=== PATIENT | female | born 1930 | race Caucasian/White ===

== ENCOUNTER 2016-07-15 15:18 | Observation (INO) | payer OTHER ==
[2016-07-15] VITALS (9 sets, daily range): BP systolic 109–148; BP diastolic 61–80; PULSE 53–61; RESP 18–19; TEMP 98–98.6; O2SAT 94–99
[~2016-07-15 15:18] MED LIST: AMLO10 PO; ATOR20TA42 PO; EYECAP PO; FLON0.053; FURO20 PO; MECL25; METO25 PO; NITR.4 SL; SOTA80TA PO; SPIR25TA PO
[2016-07-15] MEDS ORDERED: SODIUM CHLORIDE 0.9% FLUSH 10 ML FLUSH IV FLUSH PRN ×2 (17:15→20:00)
--- NOTE | 2016-07-15 17:19 | PD ---
HPI Chief Complaint: General Weakness Time Seen by Provider: 17:05 Travel History International Travel<30 days: No Contact w/Intl Traveler<30days: No Traveled to known affect area: No History of Present Illness HPI 86-year-old female with history of type B aortic dissection being treated medically, A. fib, hypertension, CAD, recently diagnosed with sinusitis and started on cefuroxime by her primary care physician, here for evaluation of generalized weakness, feeling as though she is going to faint, unable to ambulate more than 6 steps with her walker without becoming shortness of breath and feeling as if she may pass out. The patient also states that she feels dizzy/lightheaded when she ambulates. The symptoms have been going on for last several days. The patient has had a nonproductive cough. She denies chest pain. She has dyspnea on exertion, not at rest. No abdominal pain. No fevers. PFSH Past Medical History Arthritis: Yes Asthma: Yes (HX) Anxiety: Yes Depression: Yes Cancer: Yes (VULVA) Cardiomyopathy: Yes Cardiovascular Problems: Yes (CARDIOMYOPATHY/CHF) High Cholesterol: Yes Congestive Heart Failure: Yes (2013) Cerebrovascular Accident: Yes (MULTIPLE TIA) Coronary Artery Disease: Yes Diminished Hearing: No Diverticulitis: Yes Endocrine: No Gastrointestinal Disorders: Yes GERD: Yes Genitourinary: Yes Hiatal Hernia: Yes Hypertension: Yes Immune Disorder: No Implanted Vascular Access Dvce: Yes Musculoskeletal: Yes (LEFT ARM PAIN) Neurologic: Yes Psychiatric: Yes Reproductive: Yes (HX CANCER VULVA) Respiratory: Yes (O2 @HOME) Immunizations Current: Yes Radiation Therapy: No Renal Failure: Yes (PT STATES DX LAST WEEK) Sleep Apnea: Yes (POSSIBLE) Ulcer: Yes Menopausal: Yes Ovarian Cysts: Yes Past Surgical History Abdominal Surgery: Yes (APPENDECTOMY, HERNIAS X 2) AICD: Yes (PACEMAKER DEFIB) Appendectomy: Yes Body Medical Devices: GAVIN EYE LENS Cardiac Surgery: Yes (AICD) Eye Surgery: Yes (GAVIN CATARACT SX) Gynecologic Surgery: Yes (VULVA CANCER SX X 3) Joint Replacement: Yes (gavin hips) Oral Surgery: Yes (T&A HAS TMJ) Pacemaker: Yes Tonsillectomy: Yes Other Surgery: Yes Family History Family Hypercholesterolemia: Yes Social History Alcohol Use: No Tobacco Use: No Substance Use: No Allergies-Medications (Allergen,Severity, Reaction): Coded Allergies: Erythromycins (Verified Allergy, Severe, GASTRIC, 07/15/16) Felodipine (Verified Allergy, Severe, 07/15/16) Niacin (Verified Allergy, Severe, GASTRIC, 07/15/16) Penicillin (Verified Allergy, Severe, HIVES, 07/15/16) Dilaudid (Verified Allergy, Intermediate, Dizziness, 07/15/16) Doxycycline (Verified Allergy, Unknown, 07/15/16) Indocin (Verified Allergy, Unknown, PT DOES NOT KNOW, 07/15/16) Levaquin (Verified Allergy, Unknown, PT DOES NOT KNOW, 07/15/16) Naprosyn (Verified Allergy, Unknown, DOES NOT KNOW, 07/15/16) Sulfa (Verified Allergy, Unknown, DOES NOT KNOW , 07/15/16) Zestril (Verified Allergy, Unknown, DOES NOT KNOW, 07/15/16) Bactrim (Verified Adverse Reaction, Severe, 07/15/16) Uncoded Allergies: PLENDIL (Allergy, Unknown, 08/02/14) Reported Meds & Prescriptions Reported Meds & Active Scripts Active Reported Cefuroxime (Cefuroxime Axetil) 250 Mg Tab 250 Mg PO BID Meclizine (Meclizine HCl) 25 Mg Tab 25 Mg PO DIRECTED PRN Ipratropium Neb (Ipratropium Sublimity) 0.5 Mg/2.5 Ml Amp 0.5 Mg NEB Q6HR NEB PRN Furosemide 20 Mg Tab 20 Mg PO DAILY Fluticasone Nasal [place] 50 Mcg/Act Naspr 50 Mcg EACH NARE DAILY 50 mcg/spray Eye Vitamins (Multiple Vitamins W/ Minerals) 1 Cap 1 Cap PO DAILY Atorvastatin (Atorvastatin Calcium) 20 Mg Tab 20 Mg PO HS Aspirin 325 Mg Tab 325 Mg PO DAILY Amlodipine (Amlodipine Besylate) 2.5 Mg Tab 2.5 Mg PO DAILY Alprazolam 0.25 Mg Tab 0.25 Mg PO Q6H PRN Sotalol (Sotalol HCl) 80 Mg Tab 40 Mg PO BID Spironolactone 25 Mg Tab 25 Mg PO DAILY Nitrostat SL (Nitroglycerin) 0.4 Mg Subl 0.4 Mg SL DIRECTED PRN 1 tablet under the tongue as needed for chest pain. Repeat every 5 minutes for a total of 3 DOSES or call 911 if NO relief. Metoprolol Tartrate 25 Mg Tab 25 Mg PO BID Review of Systems Except as stated in HPI: all other systems reviewed are Neg Physical Exam Narrative GENERAL: Well-developed, well-nourished, no acute distress SKIN: Warm and dry. No rash. No pallor. HEAD: Atraumatic. Normocephalic. EYES: Pupils equal and round. No scleral icterus. No injection or drainage. ENT: Mucous membranes pink and moist. NECK: Trachea midline. No JVD. No nuchal rigidity. CARDIOVASCULAR: Regular rate and rhythm. RESPIRATORY: No accessory muscle use. Clear to auscultation. Breath sounds equal bilaterally. GASTROINTESTINAL: Abdomen soft, non-tender, nondistended. Hepatic and splenic margins not palpable. MUSCULOSKELETAL: No obvious deformities. No clubbing. No cyanosis. No edema. NEUROLOGICAL: Awake and alert. No obvious cranial nerve deficits. Motor grossly within normal limits. Normal speech. No focal deficit. PSYCHIATRIC: Appropriate mood and affect; insight and judgment normal. Data Data Last Documented VS Vital Signs Date Time Temp Pulse Resp B/P Pulse Ox O2 Delivery O2 Flow Rate FiO2 07/15/16 18:30 61 18 134/71 99 Room Air 07/15/16 15:20 98.2 Orders Complete Blood Count With Diff (07/15/16 17:11) Comprehensive Metabolic Panel (07/15/16 17:11) Prothrombin Time / Inr (Pt) (07/15/16 17:11) Act Partial Throm Time (Ptt) (07/15/16 17:11) Urinalysis - C+S If Indicated (07/15/16 17:11) Iv Access Insert/Monitor (07/15/16 17:11) Ecg Monitoring (07/15/16 17:11) Oximetry (07/15/16 17:11) Sodium Chloride 0.9% Flush (Ns Flush) (07/15/16 17:15) Electrocardiogram (07/15/16 17:11) Chest, Single Ap (07/15/16 ) Ct Brain W/O Iv Contrast(Rout) (07/15/16 ) Influenzae A/B Antigen (07/15/16 17:11) Cath For Specimen (07/15/16 17:14) Admit Order (Ed Use Only) (07/15/16 19:32) Labs Laboratory Tests Test 07/15/16 07/15/16 17:26 18:10 White Blood Count 3.2 TH/MM3 Red Blood Count 4.32 MIL/MM3 Hemoglobin 13.5 GM/DL Hematocrit 41.1 % Mean Corpuscular Volume 94.9 FL Mean Corpuscular Hemoglobin 31.1 PG Mean Corpuscular Hemoglobin 32.8 % Concent Red Cell Distribution Width 12.7 % Platelet Count 114 TH/MM3 Mean Platelet Volume 9.5 FL Neutrophils (%) (Auto) 42.7 % Lymphocytes (%) (Auto) 44.8 % Monocytes (%) (Auto) 10.9 % Eosinophils (%) (Auto) 0.9 % Basophils (%) (Auto) 0.7 % Neutrophils # (Auto) 1.4 TH/MM3 Lymphocytes # (Auto) 1.4 TH/MM3 Monocytes # (Auto) 0.3 TH/MM3 Eosinophils # (Auto) 0.0 TH/MM3 Basophils # (Auto) 0.0 TH/MM3 CBC Comment DIFF FINAL Differential Comment Prothrombin Time 11.0 SEC Prothromb Time International 1.0 RATIO Ratio Activated Partial 28.7 SEC Thromboplast Time Sodium Level 136 MEQ/L Potassium Level 3.8 MEQ/L Chloride Level 100 MEQ/L Carbon Dioxide Level 27.9 MEQ/L Anion Gap 8 MEQ/L Blood Urea Nitrogen 15 MG/DL Creatinine 0.94 MG/DL Estimat Glomerular Filtration 56 ML/MIN Rate Random Glucose 109 MG/DL Calcium Level 8.7 MG/DL Total Bilirubin 0.8 MG/DL Aspartate Amino Transf 21 U/L (AST/SGOT) Alanine Aminotransferase 14 U/L (ALT/SGPT) Alkaline Phosphatase 72 U/L Total Protein 6.5 GM/DL Albumin 3.4 GM/DL Urine Color LIGHT-YELLOW Urine Turbidity CLEAR Urine pH 5.0 Urine Specific [place] 1.006 Urine Protein NEG mg/dL Urine Glucose (UA) NEG mg/dL Urine Ketones NEG mg/dL Urine Occult Blood NEG Urine Nitrite NEG Urine Bilirubin NEG Urine Urobilinogen LESS THAN 2.0 MG/DL Urine Leukocyte Esterase SMALL Urine RBC LESS THAN 1 /hpf Urine WBC 2 /hpf Urine Bacteria RARE /hpf Urine Hyaline Casts 7 /lpf Urine Mucus FEW /lpf Microscopic Urinalysis Comment CULT NOT INDICATED MDM Medical Decision Making Medical Screen Exam Complete: Yes Emergency Medical Condition: Yes Medical Record Reviewed: Yes Differential Diagnosis Viral illness, URI, metabolic abnormality, intracranial abnormality, UTI Narrative Course Initial vital signs show heart rate 75, blood pressure 112/80, pulse ox 97% on room air, oral temp of 98.2F. CBC shows WBC 3.2, hemoglobin 13.5, hematocrit 41.1, platelets 114. CMP is unremarkable. UA shows small leukocyte esterase, rare bacteria, not suggestive of UTI. CT head: Age-appropriate atrophy, no acute findings. Chest x-ray: There is a small nonconsolidated infiltrate in the lower lateral left lung. The patient was made aware of all findings. She is resting comfortably. She still tells me that if she walks several steps she feels like she is going to pass out. She was started on Rocephin and azithromycin for her pneumonia. She will be admitted for further treatment and evaluation of pneumonia, near syncope. Case discussed with hospitalist Dr. Gutiérrez who will admit the patient to her service and will write for antibiotics to cover for CAP. Diagnosis Primary Impression: Pneumonia Qualified Code: J18.1 - Pneumonia of left lower lobe due to infectious organism Additional Impression: Near syncope Admitting Information Admitting Physician Requests: Observation Ozzie Hudson MD Jul 15, 2016 17:19 Ozzie Hudson MD Jul 15, 2016 17:19
[2016-07-15 17:39] LABS: AUTOMATED NEUTROPHIL # 1.4 TH/MM3 (1.8-7.7); BASOPHIL % 0.7 % (0.0-2.0); EOSINOPHIL % 0.9 % (0.0-4.0); HEMATOCRIT 41.1 % (35.0-46.0); HEMO FLAGS DIFF FINAL; LYMPH % 44.8 % (9.0-44.0); LYMPHOCYTE # 1.4 TH/MM3 (1.0-4.8); MEAN CELL VOLUME 94.9 FL (80.0-100.0); MEAN CORPUSCULAR HEMOGLOBIN 31.1 PG (27.0-34.0); MEAN CORPUSCULAR HGB CONC 32.8 % (32.0-36.0); MONO % 10.9 % (0.0-8.0); NEUT % 42.7 % (16.0-70.0); PLATELET COUNT 114 TH/MM3 (150-450); RED BLOOD COUNT 4.32 MIL/MM3 (4.00-5.30); RED CELL DISTRIBUTION WIDTH 12.7 % (11.6-17.2); WHITE BLOOD COUNT 3.2 TH/MM3 (4.0-11.0)
[2016-07-15 17:52] LABS: APTT (PATIENT) 28.7 SEC (24.3-30.1)
[2016-07-15 18:09] LABS: ALKALINE PHOSPHATASE 72 U/L (45-117); TOTAL BILIRUBIN ADULT 0.8 MG/DL (0.2-1.0)
[2016-07-15 18:14] LABS: ALT (GPT) 14 U/L (10-53); ANION GAP 8 MEQ/L (5-15); AST (GOT) 21 U/L (15-37); BICARBONATE 27.9 MEQ/L (21.0-32.0); BLOOD UREA NITROGEN 15 MG/DL (7-18); CHLORIDE 100 MEQ/L (98-107); GLOMERULAR FILTRATION RATE 56 ML/MIN (>89); POTASSIUM 3.8 MEQ/L (3.5-5.1); SODIUM (NA) 136 MEQ/L (136-145)
[2016-07-15 18:30] LABS: BACTERIA, URINE RARE /hpf; BLOOD, URINE NEG (NEG); GLUCOSE,URINE NEG (NEG); HYALINE CAST, URINE 7 /lpf (RARE); KETONE, URINE NEG (NEG); MUCUS URINE FEW /lpf (OCC); NITRITE,URINE NEG (NEG); URINE COLOR LIGHT-YELLOW (YELLW/STRAW)
[2016-07-15 18:31] LABS: COMMENT (UR) CULT NOT INDICATED; CULTURE IF INDICATED CULT NOT INDICATED
[2016-07-15] MEDS ORDERED: SOTA80TA PO (18:39)
[2016-07-15] MEDS ORDERED: FLUT50SP EACH NARE (18:39)
[2016-07-15] MEDS ORDERED: ALPR0.25 PO (18:39)
[2016-07-15] MEDS ORDERED: EYECAP PO (18:39)
[2016-07-15] MEDS ORDERED: MECL-62 PO (18:39)
[2016-07-15] MEDS ORDERED: AMLO2.5T PO (18:39)
[2016-07-15] MEDS ORDERED: FURO20TA PO (18:39)
[2016-07-15] MEDS ORDERED: SPIR25TA PO (18:39)
[2016-07-15] MEDS ORDERED: ATOR20TA15 PO (18:39)
[2016-07-15] MEDS ORDERED: IPRA0.02 NEB (18:39)
[2016-07-15] MEDS ORDERED: NITR0.4S SL (18:39)
[2016-07-15] MEDS ORDERED: METO25TA3 PO (18:39)
[2016-07-15] MEDS ORDERED: CEFU250T PO (18:39)
[2016-07-15] MEDS ORDERED: ASPI325T PO (18:39)
--- NOTE | 2016-07-15 18:39 | RADRPT ---
EXAM DATE/TIME: 07/15/2016 17:25 [facility] COMPARISON: CHEST SINGLE AP, March 09, 2015, 20:13. INDICATIONS : Syncope. MEDICAL HISTORY : Chronic obstructive pulmonary disease. Hypertension SURGICAL HISTORY : Pacemaker. ENCOUNTER: Initial ACUITY: 2 days PAIN SCORE: 0/10 LOCATION: chest FINDINGS: Cardiac pacer device obscures a portion of the lower lateral left lung. There is a focal opacity see n in the left lower lung which is partially obscured by a medical billing coordinator. The right lung is clear. No evidence of pneumothorax. Amorphous calcific densities in the right axilla and adjacent to the pr oximal left humerus similar to prior. The heart is normal size. CONCLUSION: There is a small non-consolidative infiltrate in the lower lateral left lung. Lencho Veliz MD on July 15, 2016 at 18:36 Board Certified Radiologist. This report was verified electronically.
--- NOTE | 2016-07-15 19:01 | RADRPT ---
EXAM DATE/TIME: 07/15/2016 17:41 [facility] COMPARISON: CT BRAIN W/O CONTRAST, August 02, 2014, 12:26. INDICATIONS : Generalized weakness. RADIATION DOSE: 35.54 CTDIvol (mGy) MEDICAL HISTORY : Stroke. Renal failure, chronic. Carcinoma, vulva. SURGICAL HISTORY : Pacemaker. ENCOUNTER: Initial ACUITY: 1 day PAIN SCALE: 0/10 LOCATION: cranial TECHNIQUE: Multiple contiguous axial images were obtained of the head. Using automated exposure control and adj ustment of the mA and/or kV according to patient size, radiation dose was kept as low as reasonably a chievable to obtain optimal diagnostic quality images. FINDINGS: CEREBRUM: The ventricles are normal for age. No evidence of midline shift, mass lesion, hemorrhage or acute in farction. No extra-axial fluid collections are seen. POSTERIOR FOSSA: The cerebellum and brainstem are intact. The 4th ventricle is midline. The cerebellopontine angle i s unremarkable. EXTRACRANIAL: The visualized portion of the orbits is intact. SKULL: The calvaria is intact. No evidence of skull fracture. CONCLUSION: Age-appropriate atrophy. No acute findings. Lencho Veliz MD on July 15, 2016 at 18:58 Board Certified Radiologist. This report was verified electronically.
--- NOTE | 2016-07-15 19:58 | HHI.HP ---
[facility] Service [facility] Primary Care Physician Clint Calles MD Admission Diagnosis pneumonia, near syncope Diagnoses: (1) Near syncope Diagnosis: Principal (2) Generalized weakness Diagnosis: Principal (3) PNA (pneumonia) Diagnosis: Principal (4) UTI (urinary tract infection) Diagnosis: Principal (5) Dehydration Diagnosis: Principal (6) Leukopenia Diagnosis: Principal (7) Thrombocytopenia Diagnosis: Principal Travel History International Travel<30 Days: No Contact w/Intl Traveler <30 Da: No Traveled to Known Affected Are: No History of Present Illness This is an 86-year-old female with a PMH of Anxiety, Depression, CHF (Echo w/ EF 40-45%), h/o CVA, A-fib, CAD and HTN who presented to the ER secondary to generalized weakness and near syncope in addition to SOB. Recently started on Cefuroxime 250mg BID by PCP for Sinusitis, reports compliance w/ medications. Today, pt reports increased dizziness and weakness, unable to walk very far due to gait instability and SOB. Denies fever, chills or chest pain. On arrival, BP 112/80, HR 75, O2 sat 97% on RA, Afebrile. WBC 3.2, previously 5.7 on 03/09/15. Platelets 114, previously 158 on 03/09/15. U/a w/ small LE, mild bacteriuria. CT Head w/ no acute findings. CXR w/ small infiltrate LLL. Review of Systems Except as stated in HPI: all other systems reviewed are Neg ROS: 14 point review of systems otherwise negative. Past Family Social History Past Medical History PMH: Anxiety, Depression, CHF (Echo 08/03/14 w/ EF 40-45%), h/o CVA, A-fib, CAD and HTN Past Surgical History PAST SURGICAL HISTORY: Appendectomy, Hernia Repair, Pacemaker/AICD, Lens Surgery, Bilateral Hip Replacement, Vulva Surgery, Tonsillectomy Allergies: Coded Allergies: Erythromycins (Verified Allergy, Severe, GASTRIC, 07/15/16) Felodipine (Verified Allergy, Severe, 07/15/16) Niacin (Verified Allergy, Severe, GASTRIC, 07/15/16) Penicillin (Verified Allergy, Severe, HIVES, 07/15/16) Dilaudid (Verified Allergy, Intermediate, Dizziness, 07/15/16) Doxycycline (Verified Allergy, Unknown, 07/15/16) Indocin (Verified Allergy, Unknown, PT DOES NOT KNOW, 07/15/16) Levaquin (Verified Allergy, Unknown, PT DOES NOT KNOW, 07/15/16) Naprosyn (Verified Allergy, Unknown, DOES NOT KNOW, 07/15/16) Sulfa (Verified Allergy, Unknown, DOES NOT KNOW , 07/15/16) Zestril (Verified Allergy, Unknown, DOES NOT KNOW, 07/15/16) Bactrim (Verified Adverse Reaction, Severe, 07/15/16) Uncoded Allergies: PLENDIL (Allergy, Unknown, 08/02/14) Family History PAST FAMILY HISTORY: Reviewed. No h/o DM or CAD Social History PAST SOCIAL HISTORY: Negative for alcohol, tobacco or drugs. Physical Exam Vital Signs Vital Signs Date Time Temp Pulse Resp B/P Pulse Ox O2 Delivery O2 Flow Rate FiO2 07/15/16 18:30 61 18 134/71 99 Room Air 07/15/16 17:23 51 18 98 Room Air 07/15/16 17:23 18 98 Room Air 07/15/16 17:23 56 18 115/70 97 Room Air 07/15/16 15:22 109/68 07/15/16 15:20 98.2 75 14 112/80 97 Physical Exam PE: GENERAL: Elderly white female in no acute distress. HEENT: PERRLA, EOMI. No scleral icterus or conjunctival pallor. No lid lag or facial droop. CARDIOVASCULAR: Regular rate and rhythm. No obvious murmurs to auscultation. No chest tenderness to palpation. RESPIRATORY: No obvious rhonchi or wheezing. Clear to auscultation. Breath sounds equal bilaterally. GASTROINTESTINAL: Abdomen soft, non-tender, nondistended. BS normal. MUSCULOSKELETAL: Extremities without clubbing, cyanosis, or edema. No obvious deformities. NEUROLOGICAL: Awake, alert and oriented x4. No focal neurologic deficits. Moving both upper and lower extremities spontaneously. Laboratory Laboratory Tests Test 07/15/16 07/15/16 17:26 18:10 White Blood Count 3.2 Red Blood Count 4.32 Hemoglobin 13.5 Hematocrit 41.1 Mean Corpuscular Volume 94.9 Mean Corpuscular Hemoglobin 31.1 Mean Corpuscular Hemoglobin 32.8 Concent Red Cell Distribution Width 12.7 Platelet Count 114 Mean Platelet Volume 9.5 Neutrophils (%) (Auto) 42.7 Lymphocytes (%) (Auto) 44.8 Monocytes (%) (Auto) 10.9 Eosinophils (%) (Auto) 0.9 Basophils (%) (Auto) 0.7 Neutrophils # (Auto) 1.4 Lymphocytes # (Auto) 1.4 Monocytes # (Auto) 0.3 Eosinophils # (Auto) 0.0 Basophils # (Auto) 0.0 CBC Comment DIFF FINAL Differential Comment Prothrombin Time 11.0 Prothromb Time International 1.0 Ratio Activated Partial 28.7 Thromboplast Time Sodium Level 136 Potassium Level 3.8 Chloride Level 100 Carbon Dioxide Level 27.9 Anion Gap 8 Blood Urea Nitrogen 15 Creatinine 0.94 Estimat Glomerular Filtration 56 Rate Random Glucose 109 Calcium Level 8.7 Total Bilirubin 0.8 Aspartate Amino Transf 21 (AST/SGOT) Alanine Aminotransferase 14 (ALT/SGPT) Alkaline Phosphatase 72 Total Protein 6.5 Albumin 3.4 Urine Color LIGHT-YELLOW Urine Turbidity CLEAR Urine pH 5.0 Urine Specific [place] 1.006 Urine Protein NEG Urine Glucose (UA) NEG Urine Ketones NEG Urine Occult Blood NEG Urine Nitrite NEG Urine Bilirubin NEG Urine Urobilinogen LESS THAN 2.0 Urine Leukocyte Esterase SMALL Urine RBC LESS THAN 1 Urine WBC 2 Urine Bacteria RARE Urine Hyaline Casts 7 Urine Mucus FEW Microscopic Urinalysis Comment CULT NOT INDICATED Date/Time Procedure Status Source Growth 07/15/16 18:30 Influenza Types A,B Antigen ([facility]) - Final Complete Nasal Washing NEGATIVE FOR FLU A AND B ANTIGEN.... Result Diagram: 07/15/16 1726 07/15/16 1726 Assessment and Plan Problem List: (1) Near syncope ICD Code: R55 Status: Acute (2) Generalized weakness ICD Code: R53.1 Status: Acute (3) Dehydration ICD Code: E86.0 Status: Acute (4) PNA (pneumonia) ICD Code: J18.9 Status: Acute (5) UTI (urinary tract infection) ICD Code: N39.0 Status: Acute (6) Leukopenia ICD Code: D72.819 Status: Acute (7) Thrombocytopenia ICD Code: D69.6 Status: Acute (8) CHF (congestive heart failure) ICD Code: I50.9 Status: Acute Assessment and Plan A/P: 1. Near Syncope: c/o dizziness/lightheadedness and generalized weakness w/ associated SOB and near syncope, likely secondary to acute infection and dehydration. Initial trop negative, EKG w/ no acute findings. Admit for Observation, telemetry, check serial trop, check Echo. 2. Dehydration: GFR 56, BUN/Creatinine normal. U/a positive for mild UTI. IVF for hydration-caution w/ CHF. Repeat labs in am. 3. CHF: Chronic. Systolic. Echo 08/03/14 w/ EF 40-45%, on Lasix/Aldactone, will hold for now in light of dehydration, no evidence of fluid overload. 4. PNA: CXR w/ infiltrate LLL, images reviewed by me. Currently on Cefuroxime for Sinusitis by PCP, will continue w/ IV Rocephin. Pt w/ multiple allergies to antibiotics-antibiotic regimen very limited. 5. UTI: U/a w/ small LE, mild bacteriuria. In light of multiple medical problems and current symptoms, will treat w/ IV Rocephin. 6. Leukopenia: WBC 3.2, previously 5.7 on 03/09/15, likely related to acute infection. Will monitor, repeat labs in am. 7. Thrombocytopenia: Platelets 114, previously 158 on 03/09/15, no active bleeding. Will monitor, repeat labs in am, no anticoagulation. 8. DVT Prophylaxis: SCD/Teds. 9. Social work for d/c planning as needed. 10. Case discussed w/ ER physician at length. Wen Gutiérrez MD Jul 15, 2016 19:58
[2016-07-15] MEDS ORDERED: BISACODYL 10 MG SUPP RECTAL PRN (20:00)
[2016-07-15] MEDS ORDERED: ACETAMINOPHEN 325 MG TAB PO PRN (20:00)
[2016-07-15] MEDS ORDERED: ONDANSETRON HCL 4 MG/2 ML VIAL IVP PRN (20:00)
[2016-07-15] MEDS ORDERED: ALPRAZolam 0.25 MG TAB PO PRN (20:00)
[2016-07-15] MEDS ORDERED: cefTRIAXone INJ 1,000 MG in SODIUM CHLORIDE 0.9% INJ 100 ML IV SCH (20:00)
[2016-07-15] MEDS ORDERED: ACETAMINOPHEN/HYDROcodone 325 MG/10 MG TAB PO PRN (20:00)
[2016-07-15] MEDS: SODIUM CHLOR 0.9% 1000 ML INJ 1,000 ML IV SCH (20:44)
[2016-07-15] MEDS: SODIUM CHLORIDE 0.9% FLUSH 10 ML FLUSH IV FLUSH SCH (20:52)
[2016-07-15] MEDS: ATORVASTATIN 20 MG TAB PO SCH (21:54)
[2016-07-15] MEDS: METOPROLOL TARTRATE 25 MG TAB PO SCH (21:54)
--- NOTE | 2016-07-15 23:50 | EKG ---
Date Performed: 07/15/2016 Time Performed: 17:54:47 PTAGE: 86 years EKG: AV sequential paing Electronic pacemaker ABNORMAL ECG PREVIOUS TRACING : 03/10/2015 03.18 DOCTOR: Rosamaria Slade Interpretating Date/Time 07/15/2016 23:50:03
[2016-07-16] VITALS (9 sets, daily range): BP systolic 92–128; BP diastolic 55–65; PULSE 53–60; RESP 18–20; TEMP 97.4–98.5; O2SAT 95–97
[2016-07-16] MEDS: SODIUM CHLOR 0.9% 1000 ML INJ 1,000 ML IV SCH ×3 (05:48→22:45)
[2016-07-16 07:18] LABS: AUTOMATED NEUTROPHIL # 0.9 TH/MM3 (1.8-7.7); BASOPHIL % 0.5 % (0.0-2.0); EOSINOPHIL % 1.4 % (0.0-4.0); LYMPH % 53.9 % (9.0-44.0); LYMPHOCYTE # 1.6 TH/MM3 (1.0-4.8); MEAN CELL VOLUME 94.1 FL (80.0-100.0); MEAN CORPUSCULAR HEMOGLOBIN 31.8 PG (27.0-34.0); MEAN CORPUSCULAR HGB CONC 33.8 % (32.0-36.0); MONO % 13.2 % (0.0-8.0); PLATELET COUNT 101 TH/MM3 (150-450); RED BLOOD COUNT 3.72 MIL/MM3 (4.00-5.30); RED CELL DISTRIBUTION WIDTH 12.9 % (11.6-17.2); WHITE BLOOD COUNT 2.9 TH/MM3 (4.0-11.0)
[2016-07-16 07:21] LABS: HEMO FLAGS AUTO DIFF
[2016-07-16] MEDS: RESP: IPRATROPIUM 0.5 MG/2.5 ML NEB NEB PRN (07:31)
[2016-07-16 07:42] LABS: ALKALINE PHOSPHATASE 57 U/L (45-117); ALT (GPT) 11 U/L (10-53); ANION GAP 7 MEQ/L (5-15); AST (GOT) 14 U/L (15-37); BICARBONATE 28.1 MEQ/L (21.0-32.0); BLOOD UREA NITROGEN 15 MG/DL (7-18); CHLORIDE 104 MEQ/L (98-107); GLOMERULAR FILTRATION RATE 76 ML/MIN (>89); POTASSIUM 3.5 MEQ/L (3.5-5.1); SODIUM (NA) 139 MEQ/L (136-145); TOTAL BILIRUBIN ADULT 0.5 MG/DL (0.2-1.0)
[2016-07-16] MEDS: SODIUM CHLORIDE 0.9% FLUSH 10 ML FLUSH IV FLUSH SCH ×2 (07:58→20:12)
[2016-07-16 08:33] LABS: EOSINOPHILS 3 % (0-4); NEUTROPHIL # MANUAL DIFF 0.8 TH/MM3 (1.8-7.7); PLATELET ESTIMATE SMEAR LOW (NORMAL); PLATELET MORPHOLOGY NORMAL (NORMAL); POLYS (SEG NEUTROPHILS) 27 % (16-70); SCAN/DIFF FINAL DIFF MANUAL; WBC DIFF SAMPLE 100
--- NOTE | 2016-07-16 08:59 | HHI.PR ---
Subjective Remarks Follow-up for pneumonia. The patient has numerous complaints, particularly with the service she has received at the hospital. She states that overnight the air conditioner blowing on her has caused her to have chest pain. She locates the pain midsternally, no radiation. She states the pain is been essentially constant since she's been here. The pain is worsened whenever she coughs. She continues to complain of nonproductive cough. She states that she has been weak over the past week, normally ambulate using a cane but has had use a walker. She states that the farther she walks, she gets dizzy with hot and cold sweats. She denies any specific fever or chills. She denies passing out or sensation like she was given a pass out, just the dizziness and weakness. She denies any nausea, vomiting, diarrhea, dysuria. She reports decreased intake over the past week. She denies ever having any anaphylactic type reactions with antibiotics. She states she had hives when she had penicillin when she was 18, otherwise doesn't recall any other antibiotic reactions. She states she takes Cipro all the time for UTIs. She doesn't recall ever taking any Levaquin or what reaction she might have had. She follows with Dr. davis for pulmonology and Dr. Broderick for cardiology. Objective Vitals Vital Signs Date Time Temp Pulse Resp B/P Pulse Ox O2 Delivery O2 Flow Rate FiO2 07/16/16 04:04 97.8 53 18 125/65 95 07/15/16 23:37 98.0 53 19 120/61 94 07/15/16 22:00 60 07/15/16 21:51 98.6 58 18 148/76 95 07/15/16 20:30 99 07/15/16 19:58 59 22 99 Room Air 07/15/16 19:57 58 18 131/73 99 Room Air 07/15/16 18:30 61 18 134/71 99 Room Air 07/15/16 17:23 51 18 98 Room Air 07/15/16 17:23 18 98 Room Air 07/15/16 17:23 56 18 115/70 97 Room Air 07/15/16 15:22 109/68 07/15/16 15:20 98.2 75 14 112/80 97 I/O 4/1/17 07/15/16 07/15/16 07/16/16 07/16/16 07/16/16 07:00 15:00 23:00 07:00 15:00 23:00 Intake Total 421 ml Balance 421 ml Intake Oral 221 ml IV Total 200 ml Result Diagram: 07/16/16 0636 07/16/16 0636 Imaging Last Impressions Head CT 07/15/16 0000 Signed Impressions: Service Date/Time: Friday, July 15, 2016 17:41 - CONCLUSION: Age- appropriate atrophy. No acute findings. Lencho Veliz MD Chest X-Ray 07/15/16 0000 Signed Impressions: Service Date/Time: Friday, July 15, 2016 17:25 - CONCLUSION: There is a small non-consolidative infiltrate in the lower lateral left lung. Lencho Veliz MD Objective Remarks GENERAL: Well-developed well-nourished. In no acute distress. SKIN: Warm and dry. No lesions noted. HEENT: Normocephalic. Pupils equal and round. Mucous membranes pink and moist. CARDIOVASCULAR: Regular rate and rhythm. No murmur appreciated. No chest wall to TPP RESPIRATORY: No accessory muscle use. Clear to auscultation. Decreased breath sounds with poor air movement especially in the bases with no wheezing or rhonchi. GASTROINTESTINAL: Abdomen soft, non-tender, nondistended. Bowel sounds x4. MUSCULOSKELETAL: No obvious deformities. No clubbing or cyanosis. No edema. NEUROLOGICAL: Awake and alert. No focal neurological deficits. Moves upper and lower extremities spontaneously. Normal speech. PSYCHIATRIC: Anxious mood and affect; insight and judgment normal. A/P Problem List: (1) Near syncope ICD Code: R55 Status: Acute (2) Generalized weakness ICD Code: R53.1 Status: Acute (3) Dehydration ICD Code: E86.0 Status: Resolved (4) PNA (pneumonia) ICD Code: J18.9 Status: Acute (5) Leukopenia ICD Code: D72.819 Status: Acute (6) Thrombocytopenia ICD Code: D69.6 Status: Acute (7) CHF (congestive heart failure) ICD Code: I50.9 Status: Acute Assessment and Plan 86-year-old female with a PMH of Anxiety, Depression, CHF (Echo 08/03/14 w/ EF 40 -45%), h/o CVA, A-fib, CAD and HTN who presented with generalized weakness, dizziness, and SOB Generalized weakness with dizziness: c/o dizziness/lightheadedness and generalized weakness w/ associated SOB and near syncope, likely secondary to acute infection and dehydration. Troponin negative 2, third set pending. EKG w/ paced rhythm, no significant change from previous. Telemetry monitoring. Check echocardiogram. Gentle IVF with decreased intake. Chronic systolic CHF: Echo 08/03/14 w/ EF 40-45%. Continue metoprolol. Hold diuretics for now. PNA: CXR w/ infiltrate LLL, images personally reviewed. Influenza negative. Afebrile. Multiple antibiotic allergies listed, patient okay with Cipro, will start on Levaquin. O2 and nebs as needed. Acapella. Atypical chest pain: Suspect secondary to pneumonia and anxiety. Rule out ACS per protocol as above. Continue beta ronan, aspirin, statin. Continue Xanax and nitroglycerin as needed. Leukopenia: WBC 3.2, 2.9. Likely related to acute infection. Treat underlying infection, monitor. Thrombocytopenia: Platelets 114, 101. Previously 158 on 03/09/15. No signs of active bleeding. DVT Prophylaxis: SCD/Teds. Follow-up on chemical prophylaxis with cytopenia. Attending Statement Add blood cultures. Continue antibiotics. Monitor labs. Problem Qualifiers (1) PNA (pneumonia): Qualified Code: J18.1 - Pneumonia of left lower lobe due to infectious organism (2) CHF (congestive heart failure): Qualified Code: I50.22 - Chronic systolic congestive heart failure Enoch Henson Jul 16, 2016 08:59 Daniel Scales DO Jul 16, 2016 15:11
[2016-07-16] MEDS ORDERED: NITROGLYCERIN 0.4 MG SL 25 TABS/BTL SL PRN (09:00)
[2016-07-16] MEDS: amLODIPine BESYLATE 5 MG TAB PO SCH (10:57)
[2016-07-16] MEDS: ASPIRIN 325 MG TAB PO SCH (10:57)
[2016-07-16] MEDS: MULTIVITAMINS/MINERALS THERAPEUTIC TAB PO SCH (10:57)
[2016-07-16] MEDS: METOPROLOL TARTRATE 25 MG TAB PO SCH ×2 (10:57→20:08)
[2016-07-16] MEDS: LEVOFLOXACIN 750 MG PREMIX INJ 150 ML IV SCH (10:58)
[2016-07-16] MEDS: FLUTICASONE PROPIONATE 50 MCG/ACT 16 GM NASAL SPRAY EACH NARE SCH (10:58)
[2016-07-16] MEDS: ATORVASTATIN 20 MG TAB PO SCH (20:08)
[2016-07-16] MEDS: ACETAMINOPHEN/HYDROcodone 325 MG/5 MG TAB PO PRN (20:11)
[2016-07-17] VITALS (7 sets, daily range): BP systolic 108–159; BP diastolic 55–77; PULSE 56–64; RESP 16–20; TEMP 97.5–98.3; O2SAT 95–99
[2016-07-17 06:08] LABS: AUTOMATED NEUTROPHIL # 1.7 TH/MM3 (1.8-7.7); BASOPHIL % 0.4 % (0.0-2.0); EOSINOPHIL % 1.2 % (0.0-4.0); HEMATOCRIT 34.9 % (35.0-46.0); LYMPH % 38.9 % (9.0-44.0); LYMPHOCYTE # 1.4 TH/MM3 (1.0-4.8); MEAN CELL VOLUME 95.5 FL (80.0-100.0); MEAN CORPUSCULAR HEMOGLOBIN 31.8 PG (27.0-34.0); MEAN CORPUSCULAR HGB CONC 33.3 % (32.0-36.0); MONO % 13.1 % (0.0-8.0); NEUT % 46.4 % (16.0-70.0); PLATELET COUNT 99 TH/MM3 (150-450); RED BLOOD COUNT 3.65 MIL/MM3 (4.00-5.30); RED CELL DISTRIBUTION WIDTH 12.9 % (11.6-17.2); WHITE BLOOD COUNT 3.6 TH/MM3 (4.0-11.0)
[2016-07-17 06:31] LABS: HEMO FLAGS AUTO DIFF
[2016-07-17 06:35] LABS: BICARBONATE 24.9 MEQ/L (21.0-32.0); MAGNESIUM 2.3 MG/DL (1.5-2.5); POTASSIUM 4.2 MEQ/L (3.5-5.1)
--- NOTE | 2016-07-17 08:40 | HHI.PR ---
Subjective Remarks Follow up for pneumonia, atypical chest pain. The patient reports no further episodes of chest pain overnight. Denies fevers/chills. She states her chest feels congested but she is still unable to cough. She feels short of breath with minimal exertion. She also feels very weak, has not been able to ambulate since arrival. She lives alone. Agrees to rehab if possible. Objective Vitals Vital Signs Date Time Temp Pulse Resp B/P Pulse Ox O2 Delivery O2 Flow Rate FiO2 07/17/16 04:10 97.5 64 20 112/55 95 07/17/16 00:29 98.3 57 20 109/55 95 07/16/16 20:01 60 07/16/16 19:27 97.9 58 20 121/59 95 07/16/16 19:13 95 07/16/16 16:05 97.4 58 20 124/65 95 07/16/16 14:00 54 07/16/16 11:59 98.5 56 20 128/64 97 07/16/16 09:57 55 109/59 106/63 92/55 07/16/16 09:28 95 I/O 07/16/16 07/16/16 07/16/16 07/17/16 07/17/16 07/17/16 07:00 15:00 23:00 07:00 15:00 23:00 Intake Total 1691 ml Balance 1691 ml Intake Oral 941 ml IV Total 750 ml # Voids 3 Result Diagram: 07/17/16 0549 07/17/16 0549 Imaging Last Impressions Head CT 07/15/16 0000 Signed Impressions: Service Date/Time: Friday, July 15, 2016 17:41 - CONCLUSION: Age- appropriate atrophy. No acute findings. Lencho Veliz MD Chest X-Ray 07/15/16 0000 Signed Impressions: Service Date/Time: Friday, July 15, 2016 17:25 - CONCLUSION: There is a small non-consolidative infiltrate in the lower lateral left lung. Lencho Veliz MD Objective Remarks GENERAL: Well-nourished, well-developed patient in [facility]. SKIN: Warm and dry. No rash. HEENT: Normocephalic. Atraumatic.Pupils equal and round. No scleral icterus. No injection or drainage. Mucous membranes pink and moist. NECK: Supple. Trachea midline. CARDIOVASCULAR: Regular rate and rhythm. S1, S2 noted. No murmur appreciated. RESPIRATORY: No accessory muscle use. Decreased breath sounds at bilateral bases , no wheezing. Breath sounds equal bilaterally. GASTROINTESTINAL: Abdomen soft, non-tender, nondistended. Normoactive bowel sounds x4. MUSCULOSKELETAL: No obvious deformities. Extremities without clubbing, cyanosis , or edema. NEUROLOGICAL: Awake and alert. No obvious cranial nerve deficits. Motor grossly within normal limits. Moves all extremities spontaneously with generalized weakness. Normal speech. PSYCHIATRIC: Appropriate mood and affect; insight and judgment normal. Medications and IVs Current Medications Medications (Trade) Dose Ordered Sig/Slade Route Start Time Stop Time Status Last Admin Sodium Chloride 2 ml 2 ml UNSCH PRN IV FLUSH 07/15/16 17:15 07/15/16 21:56 (NS 1000 ml Inj) 1,000 ml @ 50 mls/hr Q20H IV 07/15/16 19:48 07/16/16 11:00 (NS Flush) 2 ml UNSCH PRN IV FLUSH 07/15/16 20:00 (NS Flush) 2 ml BID IV FLUSH 07/15/16 21:00 (Zofran Inj) 4 mg Q6H PRN IVP 07/15/16 20:00 (Dulcolax Supp) 10 mg DAILY PRN RECTAL 07/15/16 20:00 (Tylenol) 650 mg Q6H PRN PO 07/15/16 20:00 ([place] 5-325 Mg) 1 tab Q4H PRN PO 07/15/16 20:00 07/16/16 20:11 ([place] 10-325 Mg) 1 tab Q4H PRN PO 07/15/16 20:00 (Xanax) 0.25 mg Q6H PRN PO 07/15/16 20:00 (Norvasc) 2.5 mg DAILY PO 07/16/16 09:00 07/16/16 10:57 (Aspirin) 325 mg DAILY PO 07/16/16 09:00 07/16/16 10:57 (Lipitor) 20 mg HS PO 07/15/16 21:00 07/16/16 20:08 (Flonase Ebenezer Spr) 1 spray DAILY EACH NARE 07/16/16 09:00 07/16/16 10:58 Multivitamins/ Minerals Therapeutic 1 tab 1 tab DAILY PO 07/16/16 09:00 07/16/16 10:57 (Levaquin 750 Mg Premix Inj) 150 ml @ 100 mls/hr Q24H IV 07/16/16 10:00 07/16/16 10:58 (Nitrostat Sl) 0.4 mg Q5M PRN SL 07/16/16 09:00 (Lopressor) 12.5 mg BID PO 07/16/16 21:00 07/16/16 20:08 Urinary Catheter: No Vascular Central Line Catheter: No A/P Problem List: (1) Near syncope ICD Code: R55 Status: Acute (2) Generalized weakness ICD Code: R53.1 Status: Acute (3) Dehydration ICD Code: E86.0 Status: Resolved (4) PNA (pneumonia) ICD Code: J18.9 Status: Acute (5) Leukopenia ICD Code: D72.819 Status: Acute (6) Thrombocytopenia ICD Code: D69.6 Status: Acute (7) CHF (congestive heart failure) ICD Code: I50.9 Status: Acute Assessment and Plan 86-year-old female with a PMH of Anxiety, Depression, CHF (Echo 08/03/14 w/ EF 40 -45%), h/o CVA, A-fib, CAD and HTN who presented with generalized weakness, dizziness, and SOB Generalized weakness with dizziness: c/o dizziness/lightheadedness and generalized weakness w/ associated SOB and near syncope, likely secondary to acute infection and dehydration. Troponin negative 3, EKG w/ paced rhythm, no significant change from previous. Telemetry monitoring. Check echocardiogram. Gentle IVF with decreased intake. Chronic systolic CHF: Echo 08/03/14 w/ EF 40-45%. Continue metoprolol. Hold diuretics for now. Repeat echo. Community Acquired PNA: CXR w/ infiltrate LLL, images personally reviewed. Influenza negative. Afebrile. Multiple antibiotic allergies listed, patient okay with Cipro, started on Levaquin. O2 and nebs as needed. Acapella. Atypical chest pain: Suspect secondary to pneumonia and anxiety. ACS ruled out per protocol as above. Continue beta ronan, aspirin, statin. Continue Xanax and nitroglycerin as needed. Chest pains resolved. Leukopenia: WBC 3.2, 2.9. Likely related to acute infection. Treat underlying infection, monitor. Thrombocytopenia: Platelets 114, 101. Previously 158 on 03/09/15. No signs of active bleeding. Generalized Weakness: suspect secondary to infection as above. Consult PT. Case management consult. May need rehab placement. Abdominal Pain/Nausea: no vomiting. Developed today 07/17 after taking Mucinex, d/ c mucinex. No BM since arrival. Check abdominal KUB. Start Protonix. Check lipase. DVT Prophylaxis: SCD/Teds. Follow-up on chemical prophylaxis with cytopenia. Written by Chante Casey, acting as scribe for Dr. Scales on 07/17/16 at 17:07. Problem Qualifiers (1) PNA (pneumonia): Qualified Code: J18.1 - Pneumonia of left lower lobe due to infectious organism (2) CHF (congestive heart failure): Qualified Code: I50.22 - Chronic systolic congestive heart failure Chante Casey PA-C Jul 17, 2016 08:40 aDniel Scales DO Jul 18, 2016 14:36
[2016-07-17] MEDS: ASPIRIN 325 MG TAB PO SCH (09:00)
[2016-07-17] MEDS: SODIUM CHLORIDE 0.9% FLUSH 10 ML FLUSH IV FLUSH SCH ×2 (09:00→21:00)
[2016-07-17] MEDS: METOPROLOL TARTRATE 25 MG TAB PO SCH ×2 (09:00→21:21)
[2016-07-17 09:10] LABS: PLATELET ESTIMATE SMEAR LOW (NORMAL); PLATELET MORPHOLOGY NORMAL (NORMAL); SCAN/DIFF AUTO DIFF CONFIRMED
[2016-07-17] MEDS: LEVOFLOXACIN 750 MG PREMIX INJ 150 ML IV SCH (09:43)
[2016-07-17] MEDS: amLODIPine BESYLATE 5 MG TAB PO SCH (09:44)
[2016-07-17] MEDS: MULTIVITAMINS/MINERALS THERAPEUTIC TAB PO SCH (09:45)
[2016-07-17] MEDS: SODIUM CHLOR 0.9% 1000 ML INJ 1,000 ML IV SCH (09:46)
[2016-07-17] MEDS: FLUTICASONE PROPIONATE 50 MCG/ACT 16 GM NASAL SPRAY EACH NARE SCH (09:47)
[2016-07-17] MEDS ORDERED: guaiFENesin E.R. 600 MG TAB PO SCH (10:45)
[2016-07-17] MEDS: ACETAMINOPHEN/HYDROcodone 325 MG/5 MG TAB PO PRN (12:19)
[2016-07-17] MEDS ORDERED: PANTOPRAZOLE SOD 40 MG DELAYED RELEASE TAB PO ONE (17:15)
[2016-07-17] MEDS ORDERED: POLYETHYLENE GLYCOL 17 GM PKG PO ONE (17:15)
[2016-07-17] MEDS: SENNOSIDES 8.6 MG TAB PO SCH (17:15)
--- NOTE | 2016-07-17 18:13 | RADRPT ---
EXAM DATE/TIME: 07/17/2016 17:22 [place] COMPARISON: No previous studies available for comparison. INDICATIONS : Abdominal pain and nausea. MEDICAL HISTORY : None. SURGICAL HISTORY : None. ENCOUNTER: Initial ACUITY: 1 day PAIN SCORE: 6/10 LOCATION: Bilateral lower quadrant abdomen. FINDINGS: The bowel gas is nonspecific. There are no signs of obstruction or free air for technique. No defini te calcified stones are identified for technique. Total hip arthroplasty is seen bilaterally. CONCLUSION: Nonspecific abdomen. Parth Ritchie MD on July 17, 2016 at 18:11 Board Certified Radiologist. This report was verified electronically.
[2016-07-17] MEDS: DOCUSATE SODIUM 100 MG CAP PO SCH (21:00)
[2016-07-17] MEDS: ATORVASTATIN 20 MG TAB PO SCH (21:21)
[2016-07-18 01:14] VITALS: PULSE 67
[2016-07-18 05:14] VITALS: BP_SYST 133; BP_SYST 135; BP_SYST 150; BP_DIAS 76; BP_DIAS 78; BP_DIAS 80; PULSE 72; RESP 20; TEMP 97.8; O2SAT 95
[2016-07-18] MEDS: RESP: IPRATROPIUM 0.5 MG/2.5 ML NEB NEB PRN (06:18)
[2016-07-18 08:37] VITALS: BP 151/72; PULSE 60; TEMP 97.8; O2SAT 95
[2016-07-18] MEDS ORDERED: PANTOPRAZOLE SOD 40 MG DELAYED RELEASE TAB PO SCH (09:00)
[2016-07-18] MEDS: DOCUSATE SODIUM 100 MG CAP PO SCH (09:00)
[2016-07-18] MEDS: MULTIVITAMINS/MINERALS THERAPEUTIC TAB PO SCH (09:00)
[2016-07-18] MEDS: ASPIRIN 325 MG TAB PO SCH (09:00)
[2016-07-18] MEDS: SENNOSIDES 8.6 MG TAB PO SCH (09:00)
[2016-07-18] MEDS: FLUTICASONE PROPIONATE 50 MCG/ACT 16 GM NASAL SPRAY EACH NARE SCH (09:55)
[2016-07-18] MEDS: amLODIPine BESYLATE 5 MG TAB PO SCH (09:56)
[2016-07-18] MEDS: SODIUM CHLOR 0.9% 1000 ML INJ 1,000 ML IV SCH (09:58)
[2016-07-18] MEDS: LEVOFLOXACIN 750 MG PREMIX INJ 150 ML IV SCH (09:58)
[2016-07-18] MEDS: SODIUM CHLORIDE 0.9% FLUSH 10 ML FLUSH IV FLUSH SCH (10:00)
[2016-07-18] MEDS ORDERED: ASPI81CH CHEW (10:36)
[2016-07-18] MEDS ORDERED: SODIUM CHLORIDE 0.65% NASAL SPRAY 45 ML BTL EACH NARE PRN (10:45)
[2016-07-18] MEDS ORDERED: ASPIRIN EC 81 MG TABEC PO SCH (10:45)
--- NOTE | 2016-07-18 11:09 | EC ---
Study Study Date:07/17/2016 STUDY CONCLUSIONS SUMMARY - Left ventricle: The cavity size was normal. Wall thickness was normal. Systolic function was mildly to moderately reduced. The estimated ejection fraction was in the range of 40% to 45%. Wall motion shows dyssynergy from pacing. - Aortic valve: Valve area: 1.96cm^2 (Vmax). - Pulmonary arteries: Systolic pressure was mildly increased. PA peak pressure: 44mm Hg (S). If LV function is below 40, please consider prescribing an ACEI or ARB or document rationale for non-use. PROCEDURE DATA STUDY STATUS: Elective. Procedure: Transthoracic echocardiography. Image quality was good. Scanning was performed from the parasternal, apical, and subcostal acoustic windows. Study completion: The patient tolerated the procedure well. Transthoracic echocardiography. M-mode, complete 2D, complete spectral Doppler, and color Doppler. Height: Height: 68in. Weight: Weight: 148.7lb. Body mass index: BMI: 22.7kg/m^2. Body surface area: BSA: 1.8m^2. Patient status: Inpatient. CARDIAC ANATOMY LEFT VENTRICLE: The cavity size was normal. Wall thickness was normal. Systolic function was mildly to moderately reduced. The estimated ejection fraction was in the range of 40% to 45%. Wall motion shows dyssynergy from pacing. AORTIC VALVE: Trileaflet; mildly thickened, mildly calcified leaflets. Doppler: Transvalvular velocity was within the normal range. There was no stenosis. Trace to mild regurgitation. Valve area: 1.96cm^2 (Vmax). Indexed valve area: 1.09cm^2/m^2 (Vmax). Peak gradient: 10mm Hg (S). AORTA: Aortic root: The aortic root was normal in size. MITRAL VALVE: Structurally normal valve. Doppler: Transvalvular velocity was within the normal range. There was no evidence for stenosis. Trace regurgitation. LEFT ATRIUM: The atrium was normal in size. RIGHT VENTRICLE: The cavity size was normal. Wall thickness was normal. Pacer wire or catheter noted in right ventricle. PULMONIC VALVE: Doppler: Transvalvular velocity was within the normal range. There was no evidence for stenosis. No regurgitation. TRICUSPID VALVE: Structurally normal valve. Doppler: Transvalvular velocity was within the normal range. Trace to mild regurgitation. PULMONARY ARTERY: The main pulmonary artery was normal-sized. Systolic pressure was mildly increased. RIGHT ATRIUM: The atrium was normal in size. PERICARDIUM: There was no pericardial effusion. SYSTEMIC VEINS: Inferior vena cava: The vessel was normal in size. Patient weight: 148.7lb _Ejection fraction:_ 65-75% _Fractional shortening:_ 32% up to 5Kg 5-11.5Kg 11.6-22.9Kg 23-45Kg 45-57Kg Aortic Root 7-13 <17 13-22 17-27 17-27 LA diam 6-13 <23 24-38 33-47 37-40 RVID 10-17 7-15 7-15 7-18 8-17 LVIDd 12-22 <32 24-38 33-47 37-40 LVPW 2-4 3-6 5-7 6-8 7-8 IVS 2-4 3-6 5-7 6-8 7-8 BASIC MEASUREMENTS ADULT NORMAL Left ventricle LV internal dimension, ED, chordal 44.8 mm 43-52 level, PLAX LV internal dimension, ES, chordal 37.8 mm 23-38 level, PLAX Fractional shortening, chordal level, *16 % >29 PLAX LV posterior wall thickness, ED 8.47 mm IVS/LVPW ratio, ED 1 <1.3 Ventricular septum Septal thickness, ED 8.5 mm Aortic valve Leaflet separation 15 mm 15-26 BASIC MEASUREMENTS ADULT NORMAL Aortic valve Leaflet separation 15 mm 15-26 Aorta Root diameter, ED 24 mm 20-37 Left atrium Anterior-posterior dimension, ES *47 mm 19-40 Anterior-posterior dimension index, ES *2.61 cm/m^2 <2.2 LA/aortic root ratio 1.96 DOPPLER MEASUREMENTS ADULT NORMAL Main pulmonary artery Pressure, S *44 mm Hg =30 Aortic valve Peak velocity, S 159 cm/s Peak gradient, S 10 mm Hg Valve area, Vmax 1.96 cm^2 Valve area index, Vmax 1.09 cm^2/m^2 Regurgitant velocity, ED 325 cm/s Regurgitant deceleration 833 cm/s^2 Regurgitant pressure half-time 1158 ms Regurgitant gradient, ED 42 mm Hg Mitral valve Peak E-wave velocity 51.3 cm/s Peak A-wave velocity 62.7 cm/s Deceleration time *268 ms 150-230 Peak E/A ratio 0.8 Maximal regurgitant velocity 282 cm/s Tricuspid valve Regurgitant peak velocity 259 cm/s Peak RV-RA gradient, S 27 mm Hg Maximal regurgitant velocity 259 cm/s Systemic veins Estimated CVP 10 mm Hg Right ventricle RV pressure, S *48 mm Hg <30 Pulmonic valve Peak velocity, S 100 cm/s LEGEND: Mean values are shown as u=mean value. Asterisk (*) petersen values outside specified normal range. Prepared and signed by Jose Escalona [id number]
[2016-07-18 12:00] VITALS: BP 122/65; PULSE 57; RESP 18; TEMP 97.4; O2SAT 96
[2016-07-18] MEDS: METOPROLOL TARTRATE 25 MG TAB PO SCH (13:28)
[2016-07-18] MEDS ORDERED: POLYETHYLENE GLYCOL 17 GM PKG PO ONE (14:30)
[2016-07-18] MEDS ORDERED: METO25TA3 PO (14:36)
[2016-07-18] MEDS ORDERED: CLIN1CAP6 PO (14:36)
[2016-07-18] MEDS ORDERED: OCEA0.653 EACH NARE (14:36)
[2016-07-18] MEDS ORDERED: HYDR-3516 PO (14:36)
[2016-07-18] MEDS ORDERED: LACTTAB8 PO (14:36)
[2016-07-18] MEDS ORDERED: ALPR0.25 PO (14:36)
[2016-07-18] MEDS ORDERED: DOCU1CAP39 PO (14:36)
--- NOTE | 2016-07-18 14:43 | HHI.PR ---
Subjective Remarks The patient said she felt a lot better today. She said she had a bad headache yesterday and her stomach was bothering her but when she woke up this morning she was feeling well. She worked with physical therapy. She said she is no longer dizzy. Discussed with nursing. Objective Vitals Vital Signs Date Time Temp Pulse Resp B/P Pulse Ox O2 Delivery O2 Flow Rate FiO2 07/18/16 12:00 97.4 57 18 122/65 96 07/18/16 11:59 07/18/16 08:37 97.8 60 151/72 95 07/18/16 05:14 97.8 72 20 135/78 95 150/76 133/80 07/18/16 01:14 67 07/17/16 20:11 97.6 62 20 159/77 95 07/17/16 16:08 97.6 63 16 150/70 99 I/O 07/17/16 07/17/16 07/17/16 07/18/16 07/18/16 07/18/16 07:00 15:00 23:00 07:00 15:00 23:00 Intake Total 480 ml 446 ml Balance 480 ml 446 ml Intake Oral 480 ml IV Total 446 ml # Voids 4 2 1 Result Diagram: 07/17/16 0549 07/17/16 0549 Imaging Last Impressions Abdomen X-Ray 07/17/16 0000 Signed Impressions: Service Date/Time: Sunday, July 17, 2016 17:22 - CONCLUSION: Nonspecific abdomen. KPoncho Ritcihe MD Head CT 07/15/16 0000 Signed Impressions: Service Date/Time: Friday, July 15, 2016 17:41 - CONCLUSION: Age- appropriate atrophy. No acute findings. Lencho Veliz MD Chest X-Ray 07/15/16 0000 Signed Impressions: Service Date/Time: Friday, July 15, 2016 17:25 - CONCLUSION: There is a small non-consolidative infiltrate in the lower lateral left lung. Lencho Veliz MD Objective Remarks GENERAL: Well-nourished, well-developed patient in [facility]. SKIN: Warm and dry. No rash. HEENT: Normocephalic. Atraumatic.Pupils equal and round. No scleral icterus. No injection or drainage. Mucous membranes pink and moist. NECK: Supple. Trachea midline. CARDIOVASCULAR: Regular rate and rhythm. S1, S2 noted. No murmur appreciated. RESPIRATORY: No accessory muscle use. Decreased breath sounds at bilateral bases , no wheezing or crackles. GASTROINTESTINAL: Abdomen soft, non-tender, nondistended. Normoactive bowel sounds x4. MUSCULOSKELETAL: No obvious deformities. Extremities without clubbing, cyanosis , or edema. NEUROLOGICAL: Awake and alert. No obvious cranial nerve deficits. Motor grossly within normal limits. Moves all extremities spontaneously with generalized weakness. Normal speech. PSYCHIATRIC: Appropriate mood and affect; insight and judgment normal. Procedures None. Medications and IVs Current Medications Medications (Trade) Dose Ordered Sig/Slade Route Start Time Stop Time Status Last Admin Sodium Chloride 2 ml 2 ml UNSCH PRN IV FLUSH 07/15/16 17:15 07/15/16 21:56 (NS 1000 ml Inj) 1,000 ml @ 50 mls/hr Q20H IV 07/15/16 19:48 07/18/16 09:58 (NS Flush) 2 ml UNSCH PRN IV FLUSH 07/15/16 20:00 (NS Flush) 2 ml BID IV FLUSH 07/15/16 21:00 07/18/16 10:00 (Zofran Inj) 4 mg Q6H PRN IVP 07/15/16 20:00 07/17/16 18:46 (Dulcolax Supp) 10 mg DAILY PRN RECTAL 07/15/16 20:00 (Tylenol) 650 mg Q6H PRN PO 07/15/16 20:00 ([place] 5-325 Mg) 1 tab Q4H PRN PO 07/15/16 20:00 07/17/16 12:19 ([place] 10-325 Mg) 1 tab Q4H PRN PO 07/15/16 20:00 (Xanax) 0.25 mg Q6H PRN PO 07/15/16 20:00 (Norvasc) 2.5 mg DAILY PO 07/16/16 09:00 07/18/16 09:56 (Lipitor) 20 mg HS PO 07/15/16 21:00 07/17/16 21:21 (Flonase Ebenezer Spr) 1 spray DAILY EACH NARE 07/16/16 09:00 07/18/16 09:55 Multivitamins/ Minerals Therapeutic 1 tab 1 tab DAILY PO 07/16/16 09:00 07/17/16 09:45 (Levaquin 750 Mg Premix Inj) 150 ml @ 100 mls/hr Q24H IV 07/16/16 10:00 07/18/16 09:58 (Nitrostat Sl) 0.4 mg Q5M PRN SL 07/16/16 09:00 (Lopressor) 12.5 mg BID PO 07/16/16 21:00 07/18/16 13:28 (Protonix) 40 mg DAILY PO 07/18/16 09:00 07/18/16 09:56 (Colace) 100 mg BID PO 07/17/16 21:00 (Senokot) 17.2 mg DAILY PO 07/17/16 17:15 (Ecotrin Ec) 81 mg DAILY PO 07/18/16 10:45 07/18/16 13:28 ([place] Ebenezer [place]) 2 spray Q4H PRN EACH NARE 07/18/16 10:45 A/P Problem List: (1) Near syncope ICD Code: R55 Status: Acute (2) Generalized weakness ICD Code: R53.1 Status: Acute (3) Dehydration ICD Code: E86.0 Status: Resolved (4) PNA (pneumonia) ICD Code: J18.9 Status: Acute (5) Leukopenia ICD Code: D72.819 Status: Acute (6) Thrombocytopenia ICD Code: D69.6 Status: Acute (7) CHF (congestive heart failure) ICD Code: I50.9 Status: Acute Assessment and Plan 86-year-old female with a PMH of Anxiety, Depression, CHF (Echo 08/03/14 w/ EF 40 -45%), h/o CVA, A-fib, CAD and HTN who presented with generalized weakness, dizziness, and SOB Generalized weakness with dizziness: c/o dizziness/lightheadedness and generalized weakness w/ associated SOB and near syncope, likely secondary to acute infection and dehydration. Troponin negative 3, EKG w/ paced rhythm, no significant change from previous. Telemetry monitoring. Echocardiogram with EF of 40-45%. Physical therapy recommends rehabilitation. Case management assistance appreciated. Chronic systolic CHF: Echo 08/03/14 w/ EF 40-45%. Continue cardiac regimen. Resume diuretics upon discharge. Community Acquired PNA: CXR w/ infiltrate LLL, images personally reviewed. Influenza negative. Afebrile. O2 and nebs as needed. Acapella. Change Levaquin to clindamycin. Atypical chest pain: Suspect secondary to pneumonia and anxiety. ACS ruled out per protocol as above. Continue beta ronan, aspirin, statin. Continue Xanax and nitroglycerin as needed. Chest pain resolved. Leukopenia/ Thrombocytopenia Likely related to acute infection. Treat underlying infection, monitor. Follow CBC as an outpt. Generalized Weakness: suspect secondary to infection as above. Consult PT. Case management consult. Will d/c to rehab. Abdominal Pain/Nausea: no vomiting. Developed today 4/ after taking Mucinex, d/ c mucinex. No BM since arrival. Start Protonix. Bowel regimen. KUB unremarkable. DVT Prophylaxis: SCD/Teds. Follow-up on chemical prophylaxis with cytopenia. Discharge Planning D/c to SNF when bed available. Problem Qualifiers (1) PNA (pneumonia): Qualified Code: J18.1 - Pneumonia of left lower lobe due to infectious organism (2) CHF (congestive heart failure): Qualified Code: I50.22 - Chronic systolic congestive heart failure Daniel Scales DO Jul 18, 2016 14:43
[2016-07-18] MEDS ORDERED: PANT40TA3 PO (14:44)
[2016-07-18] MEDS ORDERED: CLINDAMYCIN 150 MG CAP PO SCH (15:00)
[2016-07-18 15:20] VITALS: BP 140/67; PULSE 60; RESP 16; TEMP 97.8; O2SAT 95
--- NOTE | 2016-07-18 18:00 | HHI.DCPOC ---
Discharge Care Plan Diagnosis: (1) Dehydration (2) Leukopenia (3) Thrombocytopenia (4) PNA (pneumonia) (5) Near syncope (6) Generalized weakness Goals to Promote Your Health * To prevent worsening of your condition and complications * To maintain your health at the optimal level Directions to Meet Your Goals Take your medications as prescribed Follow your dietary instruction Follow activity as directed Keep your appointments as scheduled Take your immunizations and boosters as scheduled If your symptoms worsen call your PCP, if no PCP go to Urgent Care Center or Emergency Room Smoking is Dangerous to Your Health. Avoid second hand smoke Call the 24-hour hour crisis hotline for domestic abuse at Daniel Scales DO Jul 18, 2016 18:00
--- NOTE | 2016-07-18 18:04 | HHI.DS ---
Discharge Summary Admission Date Jul 15, 2016 at 19:34 Discharge Date: Jul 18, 2016 Admitting Diagnosis pneumonia, near syncope (1) Near syncope ICD Code: R55 (2) Generalized weakness ICD Code: R53.1 (3) Dehydration ICD Code: E86.0 (4) PNA (pneumonia) ICD Code: J18.9 (5) Leukopenia ICD Code: D72.819 (6) Thrombocytopenia ICD Code: D69.6 (7) CHF (congestive heart failure) ICD Code: I50.9 Procedures None. Brief History - From Admission This is an 86-year-old female with a PMH of Anxiety, Depression, CHF (Echo w/ EF 40-45%), h/o CVA, A-fib, CAD and HTN who presented to the ER secondary to generalized weakness and near syncope in addition to SOB. Recently started on Cefuroxime 250mg BID by PCP for Sinusitis, reports compliance w/ medications. Today, pt reports increased dizziness and weakness, unable to walk very far due to gait instability and SOB. Denies fever, chills or chest pain. On arrival, BP 112/80, HR 75, O2 sat 97% on RA, Afebrile. WBC 3.2, previously 5.7 on 03/09/15. Platelets 114, previously 158 on 03/09/15. U/a w/ small LE, mild bacteriuria. CT Head w/ no acute findings. CXR w/ small infiltrate LLL. CBC/BMP: 07/17/16 0549 07/17/16 0549 Significant Findings Laboratory Tests Test 07/15/16 07/16/16 07/17/16 18:10 06:36 05:49 Urine Leukocyte Esterase SMALL (NEG) Urine Bacteria RARE /hpf (NONE) Urine Mucus FEW /lpf (OCC) White Blood Count 2.9 TH/MM3 3.6 TH/MM3 (4.0-11.0) (4.0-11.0) Red Blood Count 3.72 MIL/MM3 3.65 MIL/MM3 (4.00-5.30) (4.00-5.30) Platelet Count 101 TH/MM3 99 TH/MM3 (150-450) (150-450) Lymphocytes (%) (Auto) 53.9 % (9.0-44.0) Monocytes (%) (Auto) 13.2 % 13.1 % (0.0-8.0) (0.0-8.0) Neutrophils # (Auto) 0.9 TH/MM3 1.7 TH/MM3 (1.8-7.7) (1.8-7.7) Lymphocytes % 53 % (9-44) Monocytes % 17 % (0-8) Neutrophils # (Manual) 0.8 TH/MM3 (1.8-7.7) Platelet Estimate LOW (NORMAL) LOW (NORMAL) Estimat Glomerular Filtration 76 ML/MIN (>89) 74 ML/MIN (>89) Rate Calcium Level 8.0 MG/DL 8.2 MG/DL (8.5-10.1) (8.5-10.1) Aspartate Amino Transf 14 U/L (15-37) (AST/SGOT) Total Protein 5.3 GM/DL (6.4-8.2) Albumin 2.9 GM/DL (3.4-5.0) Hematocrit 34.9 % (35.0-46.0) Chloride Level 110 MEQ/L (98-107) Imaging Last Impressions Abdomen X-Ray 07/17/16 0000 Signed Impressions: Service Date/Time: Sunday, July 17, 2016 17:22 - CONCLUSION: Nonspecific abdomen. Parth Ritchie MD Head CT 07/15/16 0000 Signed Impressions: Service Date/Time: Friday, July 15, 2016 17:41 - CONCLUSION: Age- appropriate atrophy. No acute findings. Lencho Veliz MD Chest X-Ray 07/15/16 0000 Signed Impressions: Service Date/Time: Friday, July 15, 2016 17:25 - CONCLUSION: There is a small non-consolidative infiltrate in the lower lateral left lung. Lencho Veliz MD PE at Discharge GENERAL: Well-nourished, well-developed patient in NAD. SKIN: Warm and dry. No rash. HEENT: Normocephalic. Atraumatic.Pupils equal and round. No scleral icterus. No injection or drainage. Mucous membranes pink and moist. NECK: Supple. Trachea midline. CARDIOVASCULAR: Regular rate and rhythm. S1, S2 noted. No murmur appreciated. RESPIRATORY: No accessory muscle use. Decreased breath sounds at bilateral bases , no wheezing or crackles. GASTROINTESTINAL: Abdomen soft, non-tender, nondistended. Normoactive bowel sounds x4. MUSCULOSKELETAL: No obvious deformities. Extremities without clubbing, cyanosis , or edema. NEUROLOGICAL: Awake and alert. No obvious cranial nerve deficits. Motor grossly within normal limits. Moves all extremities spontaneously with generalized weakness. Normal speech. PSYCHIATRIC: Appropriate mood and affect; insight and judgment normal. Hospital Course 86-year-old female with a PMH of Anxiety, Depression, CHF (Echo 08/03/14 w/ EF 40 -45%), h/o CVA, A-fib, CAD and HTN who presented with generalized weakness, dizziness, and SOB Generalized weakness with dizziness The pt c/o dizziness/lightheadedness and generalized weakness w/ associated SOB and near syncope. She received IVFs. Diuretics were held. Troponin negative 3 , EKG w/ paced rhythm, no significant change from previous. Telemetry monitoring. Echocardiogram with EF of 40-45%. Physical therapy recommended rehabilitation. Case management was consulted. She also had abdominal pain and a headache. Her symptoms are currently resolved. She will follow up with her PCP. Chronic systolic CHF Echo w/ EF 40-45%. Continue cardiac regimen. Resume diuretics upon discharge. Follow up with cardiology. Community Acquired PNA CXR w/ infiltrate LLL. Influenza negative. Afebrile. She received O2 and nebs as needed. Acapella. Will change IV Levaquin to PO clindamycin upon discharge. Atypical chest pain ACS ruled out per protocol. She was continued on beta ronan, aspirin, statin. Chest pain resolved. Leukopenia/ Thrombocytopenia We treated for pneumonia as above. Follow CBC as an outpt. Pt Condition on Discharge: Stable Discharge Disposition: Discharge to SNF Discharge Time: > 30 minutes Discharge Instructions DIET: Follow Instructions for: As Tolerated, No Restrictions Activities you can perform: Weight Bearing as Tari Follow up Referrals: Cardiology - 1 Week PCP Follow-up - 1 Week New Orders: CBC WITH DIFF - 3-5 Days New Medications: Clindamycin (Clindamycin) 300 Mg Cap 300 MG PO TID Infection #12 Ref 0 CAP Lactobacillus Acidophilus (Lactobacillus Acidophilus) 1 Tab Tab 1 TAB PO TIDAC Nutritional Supplement #30 Ref 0 TAB Docusate Sodium (Dok) 100 Mg Cap 100 MG PO BID Constipation #60 CAP Hydrocodone-Acetaminophen (Hydrocodone-Acetaminophen) 5-325 mg Tab 1 TAB PO Q4H PRN Pain #12 TAB Metoprolol Tartrate (Metoprolol Tartrate) 25 Mg Tab 12.5 MG PO BID Blood Pressure Management #30 TAB Pantoprazole (Pantoprazole) 40 Mg Tab 40 MG PO DAILY Stomach pain #30 TAB Saline Nasal ([place] Nasal [place]) 0.65% [place] 2 SPRAY EACH NARE Q4H PRN NASAL CONGESTION #1 BOTTLE Continued Medications: Alprazolam (Alprazolam) 0.25 Mg Tab 0.25 MG PO Q6H PRN ANXIETY #12 Ref 0 TAB (This prescription has been renewed) Amlodipine (Amlodipine) 2.5 Mg Tab 2.5 MG PO DAILY Blood Pressure Management #30 Ref 0 TAB Aspirin (Aspirin) 81 Mg Chew 81 MG CHEW DAILY Ref 0 TAB Atorvastatin (Atorvastatin) 20 Mg Tab 20 MG PO HS Cholesterol Management #30 Ref 0 TAB Fluticasone Nasal [place] (Fluticasone Nasal [place]) 50 Mcg/Act Naspr 50 MCG EACH NARE DAILY 50 mcg/spray Allergy Management #1 Ref 0 BOTTLE Ipratropium Neb (Ipratropium Neb) 0.5 Mg/2.5 Ml Amp 0.5 MG NEB Q6HR NEB PRN Breathing Treatment Ref 0 NEBULE Meclizine (Meclizine) 25 Mg Tab 25 MG PO DIRECTED PRN VERTIGO Ref 0 TAB Multiple Vitamins W/ Minerals (Eye Vitamins) 1 Cap 1 CAP PO DAILY Nutritional Supplement #30 Ref 0 CAP Nitroglycerin SL (Nitrostat SL) 0.4 Mg Subl 0.4 MG SL DIRECTED 1 tablet under the tongue as needed for chest pain. Repeat every 5 minutes for a total of 3 DOSES or call 911 if NO relief. PRN CHEST PAIN #100 Ref 0 TAB.SL Sotalol (Sotalol) 80 Mg Tab 40 MG PO BID Regulate Heart Beat #60 Ref 0 TAB Spironolactone (Spironolactone) 25 Mg Tab 25 MG PO DAILY #30 Ref 0 TAB Discontinued Medications: Cefuroxime (Cefuroxime) 250 Mg Tab 250 MG PO BID Infection Ref 0 TAB Furosemide (Furosemide) 20 Mg Tab 20 MG PO DAILY #30 Ref 0 TAB Metoprolol Tartrate (Metoprolol Tartrate) 25 Mg Tab 25 MG PO BID #60 Ref 0 TAB Daniel Scales DO Jul 18, 2016 18:04
== END 2016-07-18 19:13 | disposition short-term general hospital (02) ==
LOC: NEPC 15:18 → NEDA 19:34 → NEPGCP 21:26
PROVIDERS: ADMIT Hospitalist; ATTEND Hospitalist
DX: R55 Syncope and collapse (principal); J18.9 Pneumonia, unspecified organism; E86.0 Dehydration; J44.9 Chronic obstructive pulmonary disease, unspecified; D72.819 Decreased white blood cell count, unspecified; D69.6 Thrombocytopenia, unspecified; J44.0 Chronic obstructive pulmonary disease with (acute) lower respiratory infection; N39.0 Urinary tract infection, site not specified; J32.9 Chronic sinusitis, unspecified; R07.89 Other chest pain; F41.9 Anxiety disorder, unspecified; F32.9 Major depressive disorder, single episode, unspecified; I11.0 Hypertensive heart disease with heart failure; I50.22 Chronic systolic (congestive) heart failure; E78.00 Pure hypercholesterolemia, unspecified; K21.9 Gastro-esophageal reflux disease without esophagitis; R10.9 Unspecified abdominal pain; I25.10 Atherosclerotic heart disease of native coronary artery without angina pectoris; I48.91 Unspecified atrial fibrillation; Z96.643 Presence of artificial hip joint, bilateral; Z88.1 Allergy status to other antibiotic agents; Z88.0 Allergy status to penicillin; Z88.2 Allergy status to sulfonamides; Z88.8 Allergy status to other drugs, medicaments and biological substances; Z85.44 Personal history of malignant neoplasm of other female genital organs; Z79.51 Long term (current) use of inhaled steroids; Z79.82 Long term (current) use of aspirin; Z86.73 Personal history of transient ischemic attack (TIA), and cerebral infarction without residual deficits; Z95.0 Presence of cardiac pacemaker
CPT/HCPCS: 70450; 71010; 74000; 76937; 80048; 80053; 81001; 83690; 83735; 84484; 85007; 85025; 85027; 85610; 85730; 87040; 87804; 93005; 93306; 94640; 94664; 94667; 97110; 97162; 97530; 99285; G0378; G8987; G8988; J0696; J1956; J2405; J7030; J7644

== ENCOUNTER 2016-11-27 14:02 | Emergency (ER) | payer OTHER ==
[~2016-11-27] VITALS: Ht 162.6 cm; Wt 70.0 kg
[~2016-11-27 14:02] MED LIST changes: +ALPR0.25 PO; -AMLO10 PO; +AMLO2.5T PO; +ASPI81CH CHEW; +ATOR20TA15 PO; -ATOR20TA42 PO; +CLIN1CAP6 PO; +DOCU1CAP39 PO; -FLON0.053; +FLUT50SP EACH NARE; -FURO20 PO; +HYDR-3516 PO; +IPRA0.02 NEB; +LACTTAB8 PO; +MECL-62 PO; -MECL25; -METO25 PO; +METO25TA3 PO; -NITR.4 SL; +NITR0.4S SL; +OCEA0.653 EACH NARE; +PANT40TA3 PO
[2016-11-27] MEDS ORDERED: SODIUM CHLORIDE 0.9% FLUSH 10 ML FLUSH IVF PRN (14:45)
[2016-11-27 14:47] VITALS: BP 156/77; PULSE 61; RESP 18; TEMP 97.6; O2SAT 99
--- NOTE | 2016-11-27 14:49 | PD ---
HPI Chief Complaint: weakness, dyspnea Time Seen by Provider: 14:26 Travel History International Travel<30 days: No Contact w/Intl Traveler<30days: No Traveled to known affect area: No History of Present Illness HPI 86-year-old female came to the emergency room with history of 2 weeks of weakness and shortness of breath mostly upon exertion. Patient does not think her shortness of breath is getting worse but it is not improving. Patient says she does not want to live like this. And she ended up calling EMS today. However as per EMS she was able to walk with her walker from the bedroom to the ambulance. Vital signs are stable. Patient denies of any chest pain. She says she gets very diaphoretic after exerting. She has history of cardiomyopathy and congestive heart failure. She has a pacemaker. Patient cannot have a stress test either the chemical or exercise. Her last cardiac catheterization was many years ago and does not have any stents. She seems anxious but she is describing her condition to me. She had gone to the restroom with the use of the walker before I went to see her and had just returned back. She was visibly short of breath but her oxygen saturation was 97 % on room air. Patient says that she had similar symptoms 6 months ago and eventually was diagnosed with pneumonia. [facility] Past Medical History Narrative Medical List of her past medical, surgical, social and family history as reviewed from the nursing note. Arthritis: Yes Asthma: Yes (HX) Anxiety: Yes Depression: Yes Heart Rhythm Problems: No Cancer: Yes (VULVA) Cardiomyopathy: Yes Cardiovascular Problems: Yes (CARDIOMYOPATHY/CHF) High Cholesterol: Yes Chemotherapy: No Chest Pain: No Congestive Heart Failure: Yes (2013) COPD: Yes Cerebrovascular Accident: Yes (MULTIPLE TIA) Coronary Artery Disease: Yes Diminished Hearing: No Diverticulitis: Yes Endocrine: No Gastrointestinal Disorders: Yes GERD: Yes Genitourinary: Yes Hiatal Hernia: Yes Hypertension: Yes Immune Disorder: No Implanted Vascular Access Dvce: Yes Musculoskeletal: Yes (LEFT ARM PAIN) Neurologic: Yes Psychiatric: Yes Reproductive: No Respiratory: Yes Immunizations Current: Yes Radiation Therapy: No Renal Failure: Yes (PT STATES DX LAST WEEK) Sleep Apnea: No Ulcer: Yes Menopausal: Yes Ovarian Cysts: Yes Past Surgical History Abdominal Surgery: Yes (APPENDECTOMY, HERNIAS X 2) AICD: Yes (PACEMAKER DEFIB) Appendectomy: Yes Body Medical Devices: GAVIN EYE LENS, AICD Cardiac Surgery: Yes (AICD) Eye Surgery: Yes (GAVIN CATARACT SX) Gynecologic Surgery: Yes (VULVA CANCER SX X 3) Joint Replacement: Yes (gavin hips) Oral Surgery: Yes (T&A HAS TMJ) Pacemaker: Yes Tonsillectomy: Yes Other Surgery: Yes Family History Family Hypercholesterolemia: Yes Social History Alcohol Use: No Tobacco Use: No Substance Use: No Allergies-Medications (Allergen,Severity, Reaction): Coded Allergies: azithromycin (Unverified Allergy, Severe, GASTRIC, 11/28/16) erythromycin base (Unverified Allergy, Severe, GASTRIC, 11/28/16) felodipine (Unverified Allergy, Severe, 11/28/16) niacin (Unverified Allergy, Severe, GASTRIC, 11/28/16) penicillin G (Unverified Allergy, Severe, HIVES, 11/28/16) hydromorphone (Unverified Allergy, Intermediate, Dizziness, 11/28/16) Sulfa (Sulfonamide Antibiotics) (Unverified Allergy, Unknown, DOES NOT KNOW , 11/28/16) doxycycline (Unverified Allergy, Unknown, 11/28/16) indomethacin (Unverified Allergy, Unknown, PT DOES NOT KNOW, 11/28/16) levofloxacin (Unverified Allergy, Unknown, 11/28/16) lisinopril (Unverified Allergy, Unknown, DOES NOT KNOW, 11/28/16) naproxen (Unverified Allergy, Unknown, DOES NOT KNOW, 11/28/16) sulfamethoxazole (Unverified Adverse Reaction, Severe, 11/28/16) trimethoprim (Unverified Adverse Reaction, Severe, 11/28/16) Uncoded Allergies: "EES" (Allergy, Unknown, 11/27/16) EES is listed on pts personal allergy list PLENDIL (Allergy, Unknown, 08/02/14) Comments List of her allergies reviewed from the nursing note. Reported Meds & Prescriptions Reported Meds & Active Scripts Active Pantoprazole (Pantoprazole Sodium) 40 Mg Tab 40 Mg PO DAILY Lactobacillus Acidophilus 1 Tab Tab 1 Tab PO TIDAC Dok (Docusate Sodium) 100 Mg Cap 100 Mg PO BID Metoprolol Tartrate 25 Mg Tab 12.5 Mg PO BID Reported Furosemide 20 Mg Tab 20 Mg PO BID Aspirin 81 Mg Chew 81 Mg CHEW DAILY Ipratropium Neb (Ipratropium [place]) 0.5 Mg/2.5 Ml Amp 0.5 Mg NEB Q6HR NEB PRN Fluticasone Nasal [place] 50 Mcg/Act Naspr 50 Mcg EACH NARE DAILY 50 mcg/spray Atorvastatin (Atorvastatin Calcium) 20 Mg Tab 20 Mg PO HS Amlodipine (Amlodipine Besylate) 2.5 Mg Tab 2.5 Mg PO DAILY Sotalol (Sotalol HCl) 80 Mg Tab 40 Mg PO BID Spironolactone 25 Mg Tab 25 Mg PO DAILY Nitrostat SL (Nitroglycerin) 0.4 Mg Subl 0.4 Mg SL DIRECTED PRN 1 tablet under the tongue as needed for chest pain. Repeat every 5 minutes for a total of 3 DOSES or call 911 if NO relief. Narrative Medication List of her home medications reviewed from the nursing note. Review of Systems Except as stated in HPI: all other systems reviewed are Neg Physical Exam Narrative GENERAL: Awake, alert, elderly, anxious, mild distress SKIN: Focused skin assessment warm/dry. HEAD: Atraumatic. Normocephalic. EYES: Pupils equal and round. No scleral icterus. No injection or drainage. ENT: No nasal bleeding or discharge. Mucous membranes pink and moist. NECK: Trachea midline. No JVD. CARDIOVASCULAR: Regular rate and rhythm. No murmur appreciated. RESPIRATORY: No accessory muscle use. Clear to auscultation. Breath sounds equal bilaterally. GASTROINTESTINAL: Abdomen soft, non-tender, nondistended. Hepatic and splenic margins not palpable. MUSCULOSKELETAL: No obvious deformities. No clubbing. No cyanosis. No edema. NEUROLOGICAL: Awake and alert. No obvious cranial nerve deficits. Motor grossly within normal limits. Normal speech. PSYCHIATRIC: Appropriate mood and affect; insight and judgment normal. Data Data Last Documented VS Vital Signs Date Time Temp Pulse Resp B/P Pulse Ox O2 Delivery O2 Flow Rate FiO2 11/27/16 14:58 59 156/77 160/81 11/27/16 14:51 96 Room Air 11/27/16 14:51 18 11/27/16 14:47 97.6 Orders Electrocardiogram (11/27/16 14:39) Basic Metabolic Panel (Bmp) (11/27/16 14:39) B-Type Natriuretic Peptide (11/27/16 14:39) Ckmb (Isoenzyme) Profile (11/27/16 14:39) Complete Blood Count With Diff (11/27/16 14:39) Magnesium (Mg) (11/27/16 14:39) Prothrombin Time / Inr (Pt) (11/27/16 14:39) Act Partial Throm Time (Ptt) (11/27/16 14:39) Troponin I (11/27/16 14:39) Chest, Single Ap (11/27/16 14:39) Ecg Monitoring (11/27/16 14:39) Bilateral Bp Monitoring (11/27/16 14:39) Iv Access Insert/Monitor (11/27/16 14:39) Oximetry (11/27/16 14:39) Oxygen Administration (11/27/16 14:39) Sodium Chloride 0.9% Flush (Ns Flush) (11/27/16 14:45) Urinalysis - C+S If Indicated (11/27/16 14:49) Labs Laboratory Tests Test 11/27/16 11/27/16 13:00 15:00 Urine Color YELLOW Urine Turbidity CLEAR Urine pH 5.0 Urine Specific [place] 1.008 Urine Protein NEG mg/dL Urine Glucose (UA) NEG mg/dL Urine Ketones NEG mg/dL Urine Occult Blood NEG Urine Nitrite NEG Urine Bilirubin NEG Urine Urobilinogen LESS THAN 2.0 MG/DL Urine Leukocyte Esterase NEG Urine RBC 1 /hpf Urine WBC 1 /hpf Urine Squamous Epithelial <1 /hpf Cells Urine Bacteria FEW /hpf Urine Hyaline Casts 3 /lpf Urine Mucus FEW /lpf Microscopic Urinalysis Comment CULT NOT INDICATED White Blood Count 6.8 TH/MM3 Red Blood Count 4.09 MIL/MM3 Hemoglobin 13.7 GM/DL Hematocrit 39.5 % Mean Corpuscular Volume 96.5 FL Mean Corpuscular Hemoglobin 33.4 PG Mean Corpuscular Hemoglobin 34.7 % Concent Red Cell Distribution Width 13.5 % Platelet Count 154 TH/MM3 Mean Platelet Volume 8.5 FL Neutrophils (%) (Auto) 71.7 % Lymphocytes (%) (Auto) 15.8 % Monocytes (%) (Auto) 11.0 % Eosinophils (%) (Auto) 0.9 % Basophils (%) (Auto) 0.6 % Neutrophils # (Auto) 4.9 TH/MM3 Lymphocytes # (Auto) 1.1 TH/MM3 Monocytes # (Auto) 0.8 TH/MM3 Eosinophils # (Auto) 0.1 TH/MM3 Basophils # (Auto) 0.0 TH/MM3 CBC Comment DIFF FINAL Differential Comment Prothrombin Time 10.2 SEC Prothromb Time International 0.9 RATIO Ratio Activated Partial 25.4 SEC Thromboplast Time Sodium Level 139 MEQ/L Potassium Level 3.9 MEQ/L Chloride Level 101 MEQ/L Carbon Dioxide Level 28.5 MEQ/L Anion Gap 10 MEQ/L Blood Urea Nitrogen 21 MG/DL Creatinine 1.33 MG/DL Estimat Glomerular Filtration 38 ML/MIN Rate Random Glucose 107 MG/DL Calcium Level 9.2 MG/DL Magnesium Level 2.4 MG/DL Total Creatine Kinase 26 U/L Troponin I 0.02 NG/ML B-Type Natriuretic Peptide 139 PG/ML MDM Medical Decision Making Medical Screen Exam Complete: Yes Emergency Medical Condition: Yes Medical Record Reviewed: Yes Interpretation(s) Normal sinus rhythm, left axis deviation, left bundle branch block, first- degree AV block. Heart rate of 57 bpm. Differential Diagnosis Congestive heart failure, pneumonia, pleural effusion, electrolyte abnormality Narrative Course 4:06 PM blood test reveals some renal insufficiency. Chest x-ray shows cardiomegaly. However rest of her blood tests are within normal limits. I do not see any family members around her. I went and reassessed the patient and she continues to look the same without much distress. At this point I would like to discharge her home and I mentioned this to her. We went over all the test results together and I let her know about the report. Procedures EKG Prior to Arrival: No Diagnosis Primary Impression: Generalized weakness Additional Impressions: Exertional dyspnea Mild renal insufficiency Referrals: Primary Care Physician 1 week Additional Instructions: Please follow-up with your primary care and your insulation worker over the next week or 2. Return to the ER if the condition worsens or any other new concerns. Med/Other Pt SpecificInfo: No Change to Meds Disposition: 01 DISCHARGE HOME Condition: Stable Kwan Benitez MD Nov 27, 2016 14:49
[2016-11-27 14:51] VITALS: RESP 18; O2SAT 96
[2016-11-27 14:58] VITALS: BP_SYST 156; BP_SYST 160; BP_DIAS 77; BP_DIAS 81; PULSE 59
[2016-11-27 15:30] LABS: AUTOMATED NEUTROPHIL # 4.9 TH/MM3 (1.8-7.7); BASOPHIL % 0.6 % (0.0-2.0); EOSINOPHIL # 0.1 TH/MM3 (0-0.4); EOSINOPHIL % 0.9 % (0.0-4.0); HEMATOCRIT 39.5 % (35.0-46.0); HEMO FLAGS DIFF FINAL; LYMPH % 15.8 % (9.0-44.0); LYMPHOCYTE # 1.1 TH/MM3 (1.0-4.8); MEAN CELL VOLUME 96.5 FL (80.0-100.0); MEAN CORPUSCULAR HEMOGLOBIN 33.4 PG (27.0-34.0); MEAN CORPUSCULAR HGB CONC 34.7 % (32.0-36.0); NEUT % 71.7 % (16.0-70.0); PLATELET COUNT 154 TH/MM3 (150-450); RED BLOOD COUNT 4.09 MIL/MM3 (4.00-5.30); RED CELL DISTRIBUTION WIDTH 13.5 % (11.6-17.2); WHITE BLOOD COUNT 6.8 TH/MM3 (4.0-11.0)
--- NOTE | 2016-11-27 15:37 | RADRPT ---
EXAM DATE/TIME: 11/27/2016 14:58 [facility] COMPARISON: CHEST SINGLE AP, July 15, 2016, 17:25. INDICATIONS : Shortness of breath. General weakness. MEDICAL HISTORY : Chronic obstructive pulmonary disease. Hypertension SURGICAL HISTORY : Pacemaker. ENCOUNTER: Initial ACUITY: 1 week PAIN SCORE: 0/10 LOCATION: Bilateral chest FINDINGS: A single view of the chest demonstrates the lungs to be symmetrically aerated without evidence of mas s, infiltrate or effusion. Mild compensated cardiomegaly with pacer. Negative for pneumothorax.. CONCLUSION: Mild complete cardiomegaly with pacemaker Kilo Hernandez MD FACR on November 27, 2016 at 15:34 Board Certified Radiologist. This report was verified electronically.
[2016-11-27 15:47] LABS: BICARBONATE 28.5 MEQ/L (21.0-32.0); MAGNESIUM 2.4 MG/DL (1.5-2.5); POTASSIUM 3.9 MEQ/L (3.5-5.1)
[2016-11-27 16:03] LABS: APTT (PATIENT) 25.4 SEC (24.3-30.1); INTERNATIONAL NORMALIZED RATIO 0.9 RATIO; PROTHROMBIN TIME - PATIENT 10.2 SEC (9.8-11.6)
[2016-11-27] MEDS ORDERED: FURO20TA PO (16:13)
[2016-11-27 17:22] LABS: BACTERIA, URINE FEW /hpf; BLOOD, URINE NEG (NEG); COMMENT (UR) CULT NOT INDICATED; CULTURE IF INDICATED CULT NOT INDICATED; GLUCOSE,URINE NEG (NEG); HYALINE CAST, URINE 3 /lpf (RARE); KETONE, URINE NEG (NEG); MUCUS URINE FEW /lpf (OCC); NITRITE,URINE NEG (NEG); SQUAMOUS EPITHELIAL CELL URINE <1 /hpf (0-5); URINE COLOR YELLOW (YELLW/STRAW)
--- NOTE | 2016-11-27 18:17 | EKG ---
Date Performed: 11/27/2016 Time Performed: 14:50:17 PTAGE: 86 years EKG: SINUS BRADYCARDIA WITH FIRST DEGREE AV BLOCK MARKED LEFT AXIS DEVIATION LEFT BUNDLE BRANCH BLOCK ABNORMAL ECG Compared to prior tracing no significant change PREVIOUS TRACING : 07/15/2016 17.54 DOCTOR: Juan Ledesma Interpretating Date/Time 11/27/2016 18:16:09
== END 2016-11-27 17:30 | disposition home or self-care (01) ==
LOC: NEPC 14:02
DX: R53.1 Weakness (principal); R06.02 Shortness of breath; N28.9 Disorder of kidney and ureter, unspecified; I50.9 Heart failure, unspecified; J44.9 Chronic obstructive pulmonary disease, unspecified
CPT/HCPCS: 71010; 80048; 81001; 82550; 83735; 83880; 84484; 85025; 85610; 85730; 93005

== ENCOUNTER 2017-10-09 16:29 | Emergency (ER) | payer OTHER ==
[~2017-10-09] VITALS: Ht 172.7 cm; Wt 70.0 kg
[~2017-10-09 16:29] MED LIST changes: -ALPR0.25 PO; +ASPI-516 CHEW; -ASPI81CH CHEW; -CLIN1CAP6 PO; -EYECAP PO; +FURO20TA PO; -HYDR-3516 PO; -MECL-62 PO; -OCEA0.653 EACH NARE
[2017-10-09 16:42] VITALS: BP 175/94; PULSE 62; RESP 18; TEMP 98.3; O2SAT 96
[2017-10-09 16:44] VITALS: O2SAT 96
[2017-10-09] MEDS ORDERED: SODIUM CHLORIDE 0.9% FLUSH 10 ML FLUSH IVF PRN (16:45)
--- NOTE | 2017-10-09 16:46 | PD ---
HPI Chief Complaint: Neuro Symptoms/ Deficits Time Seen by Provider: 16:35 Travel History International Travel<30 days: No Contact w/Intl Traveler<30days: No Traveled to known affect area: No History of Present Illness HPI The patient was seen and examined in the presence of the nurse. This patient complained of a pins and needles sensation in her right hand and right leg as started at 3:30 PM. She specifically denies having motor weakness or sensory loss or any change in speech. Denies headache. She says she has had a TIA in the past but recovered from it. She takes a daily aspirin and had one today. She arrives about an hour after symptom onset but her symptoms have essentially resolved. She is moving all her extremities fine. She is dependent upon walker and/or cane. She is very hard of hearing. Symptom severity was moderate but has spontaneously improved. Duration 40 minutes. No alleviating factors. No exacerbating factors. PFSH Past Medical History Arthritis: Yes Asthma: Yes (HX) Anxiety: Yes Depression: Yes Heart Rhythm Problems: No Cancer: Yes (VULVA) Cardiomyopathy: Yes Cardiovascular Problems: Yes (CARDIOMYOPATHY/CHF) High Cholesterol: Yes Chemotherapy: No Chest Pain: No Congestive Heart Failure: Yes (2014) COPD: Yes Cerebrovascular Accident: Yes (MULTIPLE TIA) Coronary Artery Disease: Yes Diminished Hearing: No Diverticulitis: Yes Endocrine: No Gastrointestinal Disorders: Yes GERD: Yes Genitourinary: Yes Hiatal Hernia: Yes Hypertension: Yes Immune Disorder: No Implanted Vascular Access Dvce: Yes Musculoskeletal: Yes (LEFT ARM PAIN) Neurologic: Yes Psychiatric: Yes Reproductive: No Respiratory: Yes Immunizations Current: Yes Radiation Therapy: No Renal Failure: Yes (PT STATES DX LAST WEEK) Sleep Apnea: No Ulcer: Yes Menopausal: Yes Ovarian Cysts: Yes Past Surgical History Abdominal Surgery: Yes (APPENDECTOMY, HERNIAS X 2) AICD: Yes (PACEMAKER DEFIB) Appendectomy: Yes Body Medical Devices: GAVIN EYE LENS, AICD Cardiac Surgery: Yes (AICD) Eye Surgery: Yes (GAVIN CATARACT SX) Gynecologic Surgery: Yes (VULVA CANCER SX X 3) Joint Replacement: Yes (gavin hips) Oral Surgery: Yes (T&A HAS TMJ) Pacemaker: Yes Tonsillectomy: Yes Other Surgery: Yes Family History Family Hypercholesterolemia: Yes Social History Alcohol Use: No Tobacco Use: No Substance Use: No Allergies-Medications (Allergen,Severity, Reaction): Coded Allergies: azithromycin (Unverified Allergy, Severe, GASTRIC, 11/28/16) erythromycin base (Unverified Allergy, Severe, GASTRIC, 11/28/16) felodipine (Unverified Allergy, Severe, 11/28/16) niacin (Unverified Allergy, Severe, GASTRIC, 11/28/16) penicillin G (Unverified Allergy, Severe, HIVES, 11/28/16) hydromorphone (Unverified Allergy, Intermediate, Dizziness, 11/28/16) Sulfa (Sulfonamide Antibiotics) (Unverified Allergy, Unknown, DOES NOT KNOW , 11/28/16) doxycycline (Unverified Allergy, Unknown, 11/28/16) indomethacin (Unverified Allergy, Unknown, PT DOES NOT KNOW, 11/28/16) levofloxacin (Unverified Allergy, Unknown, 11/28/16) lisinopril (Unverified Allergy, Unknown, DOES NOT KNOW, 11/28/16) naproxen (Unverified Allergy, Unknown, DOES NOT KNOW, 11/28/16) sulfamethoxazole (Unverified Adverse Reaction, Severe, 11/28/16) trimethoprim (Unverified Adverse Reaction, Severe, 11/28/16) Uncoded Allergies: "EES" (Allergy, Unknown, 11/27/16) EES is listed on pts personal allergy list PLENDIL (Allergy, Unknown, 08/02/14) Reported Meds & Prescriptions Reported Meds & Active Scripts Active Pantoprazole (Pantoprazole Sodium) 40 Mg Tab 40 Mg PO DAILY Lactobacillus Acidophilus 1 Tab Tab 1 Tab PO TIDAC Dok (Docusate Sodium) 100 Mg Cap 100 Mg PO BID Metoprolol Tartrate 25 Mg Tab 12.5 Mg PO BID Reported Furosemide 20 Mg Tab 20 Mg PO BID Aspirin 81 Mg Chew 81 Mg CHEW DAILY Ipratropium Neb (Ipratropium [place]) 0.5 Mg/2.5 Ml Amp 0.5 Mg NEB Q6HR NEB PRN Fluticasone Nasal [place] 50 Mcg/Act Naspr 50 Mcg EACH NARE DAILY 50 mcg/spray Atorvastatin (Atorvastatin Calcium) 20 Mg Tab 20 Mg PO HS Amlodipine (Amlodipine Besylate) 2.5 Mg Tab 2.5 Mg PO DAILY Sotalol (Sotalol HCl) 80 Mg Tab 40 Mg PO BID Spironolactone 25 Mg Tab 25 Mg PO DAILY Nitrostat SL (Nitroglycerin) 0.4 Mg Subl 0.4 Mg SL DIRECTED PRN 1 tablet under the tongue as needed for chest pain. Repeat every 5 minutes for a total of 3 DOSES or call 911 if NO relief. Review of Systems General / Constitutional: No: Fever Eyes: No: Visual changes HENT: No: Headaches Cardiovascular: No: Chest Pain or Discomfort Respiratory: No: Shortness of Breath Gastrointestinal: No: Abdominal Pain Genitourinary: No: Dysuria Musculoskeletal: No: Pain Skin: No Rash Neurologic: Positive: Paresthesia, No: Weakness Psychiatric: No: Depression Endocrine: No: Polydipsia Hematologic/Lymphatic: No: Easy Bruising Physical Exam Narrative GENERAL: Well-nourished, well-developed patient in no apparent distress. SKIN: Focused skin assessment reveals no rash and nodules. Skin is Warm and dry. HEAD: Atraumatic. Normocephalic. EYES: Pupils equal and round. No scleral icterus. No injection or drainage. ENT: No nasal bleeding or discharge. Mucous membranes pink and moist. NECK: Trachea midline. No JVD. CARDIOVASCULAR: Regular rate and rhythm. No murmur appreciated. RESPIRATORY: No accessory muscle use. Clear to auscultation. Breath sounds equal bilaterally. GASTROINTESTINAL: Abdomen soft, non-tender, nondistended. Hepatic and splenic margins not palpable. MUSCULOSKELETAL: No obvious deformities. No clubbing. No cyanosis. No edema. NEUROLOGICAL: Awake and alert. No obvious cranial nerve deficits. Motor grossly within normal limits. Normal speech without slurring. No facial droop. Follows commands appropriately speaks coherently PSYCHIATRIC: Appropriate mood and affect; insight and judgment reasonable for age . Data Data Last Documented VS Vital Signs Date Time Temp Pulse Resp B/P (MAP) Pulse Ox O2 Delivery O2 Flow Rate FiO2 10/09/17 18:55 57 18 165/75 (105) 95 Room Air 10/09/17 16:42 98.3 Orders Orders Electrocardiogram (10/09/17 16:41) Prothrombin Time / Inr (Pt) (10/09/17 16:41) Act Partial Throm Time (Ptt) (10/09/17 16:41) Complete Blood Count With Diff (10/09/17 16:41) Basic Metabolic Panel (Bmp) (10/09/17 16:41) Ct Brain W/O Iv Contrast(Rout) (10/09/17 16:41) Ecg Monitoring (10/09/17 16:41) Iv Access Insert/Monitor (10/09/17 16:41) Oximetry (10/09/17 16:41) Sodium Chloride 0.9% Flush (Ns Flush) (10/09/17 16:45) Labs Laboratory Tests Test 10/09/17 16:50 White Blood Count 5.0 TH/MM3 Red Blood Count 3.84 MIL/MM3 Hemoglobin 12.2 GM/DL Hematocrit 35.9 % Mean Corpuscular Volume 93.5 FL Mean Corpuscular Hemoglobin 31.8 PG Mean Corpuscular Hemoglobin Concent 34.0 % Red Cell Distribution Width 13.2 % Platelet Count 155 TH/MM3 Mean Platelet Volume 8.1 FL Neutrophils (%) (Auto) 55.1 % Lymphocytes (%) (Auto) 31.3 % Monocytes (%) (Auto) 11.1 % Eosinophils (%) (Auto) 1.9 % Basophils (%) (Auto) 0.6 % Neutrophils # (Auto) 2.7 TH/MM3 Lymphocytes # (Auto) 1.6 TH/MM3 Monocytes # (Auto) 0.6 TH/MM3 Eosinophils # (Auto) 0.1 TH/MM3 Basophils # (Auto) 0.0 TH/MM3 CBC Comment DIFF FINAL Differential Comment Prothrombin Time 10.7 SEC Prothromb Time International Ratio 1.1 RATIO Activated Partial Thromboplast Time 26.8 SEC Blood Urea Nitrogen 18 MG/DL Creatinine 0.78 MG/DL Random Glucose 96 MG/DL Calcium Level 8.5 MG/DL Sodium Level 141 MEQ/L Potassium Level 4.0 MEQ/L Chloride Level 106 MEQ/L Carbon Dioxide Level 26.7 MEQ/L Anion Gap 8 MEQ/L Estimat Glomerular Filtration Rate 70 ML/MIN [facility] Medical Decision Making Medical Screen Exam Complete: Yes Emergency Medical Condition: Yes Medical Record Reviewed: Yes Differential Diagnosis Paresthesia, peripheral neuropathy, TIA Narrative Course I have reviewed the patient's electronic medical record. IV placed and labs sent Brain CT is negative CBC and metabolic studies reasonably normal Patient symptoms have completely resolved. She had paresthesias but no motor weakness or sensory loss or speech slurring or anything to suggest acute ischemic CVA I have observed her for several hours with no recurrence of symptoms She ambulated to the bathroom and back and did well Stable for outpatient follow-up. We discussed signs and symptoms of acute stroke. If she develops any she will return promptly. She will should call her physician tomorrow for follow-up Diagnosis Primary Impression: Paresthesia of right arm and leg Additional Instructions: The patient was advised to follow up with their physician and return if they worsen. Med/Other Pt SpecificInfo: Other Disposition: 01 DISCHARGE HOME Condition: Stable Manoj Araya MD Oct 09, 2017 16:46
[2017-10-09 16:55] VITALS: BP 160/80; PULSE 56; RESP 18; O2SAT 96
[2017-10-09 17:05] LABS: AUTOMATED NEUTROPHIL # 2.7 TH/MM3 (1.8-7.7); BASOPHIL % 0.6 % (0.0-2.0); EOSINOPHIL # 0.1 TH/MM3 (0-0.4); EOSINOPHIL % 1.9 % (0.0-4.0); HEMATOCRIT 35.9 % (35.0-46.0); HEMOGLOBIN 12.2 GM/DL (11.6-15.3); LYMPH % 31.3 % (9.0-44.0); LYMPHOCYTE # 1.6 TH/MM3 (1.0-4.8); MEAN CELL VOLUME 93.5 FL (80.0-100.0); MEAN CORPUSCULAR HEMOGLOBIN 31.8 PG (27.0-34.0); MEAN PLATELET VOLUME 8.1 FL (7.0-11.0); MONO % 11.1 % (0.0-8.0); MONOCYTE # 0.6 TH/MM3 (0-0.9); NEUT % 55.1 % (16.0-70.0); PLATELET COUNT 155 TH/MM3 (150-450); RED BLOOD COUNT 3.84 MIL/MM3 (4.00-5.30); RED CELL DISTRIBUTION WIDTH 13.2 % (11.6-17.2)
[2017-10-09 17:15] VITALS: BP 154/79; PULSE 54; RESP 18; O2SAT 92
[2017-10-09 17:15] LABS: BICARBONATE 26.7 MEQ/L (21.0-32.0); CALCIUM 8.5 MG/DL (8.5-10.1)
[2017-10-09 17:18] LABS: INTERNATIONAL NORMALIZED RATIO 1.1 RATIO; PROTHROMBIN TIME - PATIENT 10.7 SEC (9.8-11.6)
[2017-10-09 17:19] LABS: CREATININE 0.78 MG/DL (0.50-1.00)
[2017-10-09 17:35] VITALS: BP 150/74; PULSE 54; RESP 18; O2SAT 95
--- NOTE | 2017-10-09 18:24 | RADRPT ---
EXAM DATE: 10/09/2017 6:12 PM EDT AGE/SEX: 87 years / Female INDICATIONS: Pins and needles sensation in right upper and lower extremities. CLINICAL DATA: This is the patient's initial encounter. Patient reports that signs and symptoms have been present for 1 day and indicates a pain score of 0/10. MEDICAL/SURGICAL HISTORY: Cardiovascular disease. Chronic obstructive pulmonary disease. Cerebrov ascular disease. Hypertension. Vulva cancer. Pacemaker. Orthopedic surgery. RADIATION DOSE: 54.11 CTDI (mGy) COMPARISON: [facility] [place], CT BRAIN W/O CONTRAST, 07/15/2016. . TECHNIQUE: CT of the head without contrast. Using automated exposure control and adjustment of the mA and/or kV according to patient size, radiation dose was kept as low as reasonably achievable to ob tain optimal diagnostic quality images. DICOM format image data is available electronically for revi ew and comparison. FINDINGS: The ventricles are symmetric and normal. There is patchy mild diminished attenuation in periventricul ar and subcortical white matter which appears stable and benign. There is no evidence of intracranial mass or hemorrhage. There is nothing to suggest acute infarction. The extracranial structures are in tact. CONCLUSION: No acute intracranial findings. Electronically signed by: Mode Valencia MD 10/09/2017 6:23 PM EDT
[2017-10-09 18:55] VITALS: BP_SYST 160; BP_SYST 165; BP_DIAS 75; BP_DIAS 80; PULSE 56; PULSE 57; RESP 18; O2SAT 95; O2SAT 96
--- NOTE | 2017-10-10 21:16 | EKG ---
Date Performed: 10/09/2017 Time Performed: 16:48:59 PTAGE: 87 years EKG: SINUS BRADYCARDIA WITH FIRST DEGREE AV BLOCK MARKED LEFT AXIS DEVIATION LEFT BUNDLE BRANCH BLOCK ABNORMAL ECG PREVIOUS TRACING : 11/27/2016 14.50 Since the previous tracing, no significant change noted DOCTOR: Jacque Cruz Interpretating Date/Time 10/10/2017 21:15:42
== END 2017-10-09 19:43 | disposition home or self-care (01) ==
LOC: PHEFT 16:29
DX: R20.2 Paresthesia of skin (principal); I11.0 Hypertensive heart disease with heart failure; I50.9 Heart failure, unspecified; E78.00 Pure hypercholesterolemia, unspecified; K21.9 Gastro-esophageal reflux disease without esophagitis
CPT/HCPCS: 70450; 80048; 85025; 85610; 85730; 93005